=== PATIENT | female | born 1950 | race Caucasian/White ===

== ENCOUNTER 2017-08-20 13:55 | Emergency (ER) | payer MEDICARE, BC, SELFPAY ==
[2017-08-20 13:56] VITALS: BP 181/124; PULSE 73; RESP 16; TEMP 36.7; O2SAT 96; BMI 21.3
--- NOTE | 2017-08-20 14:35 | EKG12_ITS ---
Test Reason : HTN Blood Pressure : / mmHG Vent. Rate : 069 BPM Atrial Rate : 069 BPM P-R Int : 166 ms QRS Dur : 076 ms QT Int : 380 ms P-R-T Axes : 063 029 063 degrees QTc Int : 407 ms Sinus rhythm with occasional Premature ventricular complexes Otherwise normal ECG Confirmed by JESSICA ZHU ([id number]), senior editor ZONIA ROSARIO ([id number]) on 08/24/2017 1:07:43 PM Referred By: AUREA Confirmed By:JESSICA ZHU
--- NOTE | 2017-08-20 14:36 | RAD_ITS ---
STUDY: X-RAY CHEST REASON FOR EXAM: Female, 67 years old. Hypertension. Chest heaviness. TECHNIQUE: Single AP portable view of the chest. COMPARISON: None. FINDINGS: EKG electrodes are seen. Hyperinflation. The lungs are clear. There is no demonstrated pleural abnormality. Normal size heart. Normal mediastinum and rashaad. Normal visualized pulmonary arteries. Normal visualized aortic arch and descending thoracic aorta. Normal visualized thoracic spine. Normal visualized ribs, clavicles, and shoulders. There is no demonstrated abnormality of the visualized soft tissue structures of the upper abdomen. RAD/Chest 1 View (Portable) IMPRESSION: Hyperinflation. Electronically Signed: Miller Gonzales MD at 14:51 EST Tel [phone], Service support ,
--- NOTE | 2017-08-20 14:36 | ED.VISSUMM ---
- ER Visit Summary Date of Service: 08/20/17 Chief Complaint: Acute on chronic hypertension History of Present Illness: The patient is a 67 F history of hypertension for 30 years. Patient was recently switched to a new antihypertension medication. She states this is Irbesartan. Today her blood pressures been elevated. He has had headaches. Some intermittent chest discomfort. No shortness of breath. No nausea, vomiting or diarrhea. No fever. Physical Examination: Signs are stable her initial blood pressure is 181/124 when I am in the room is 184/84. Pulse ox 96% room air no signs of hypoxia. She does not look septic toxic. She is no acute distress. H EENT exam unremarkable. Neck nontender. Lungs clear to auscultation bilaterally. Heart regular rate and rhythm no murmur. Abdomen soft nontender. She is moving all 4 extremities. Neurovascular intact. Equal symmetrical radial pulses. 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 Dorsi plantar flexion intact. Neurologic exam normal. Skin exam normal. Test Results: Chest x-ray showed normal cardiac silhouette and mediastinum read by myself and the radiologist. EKG sinus rhythm a rate of 69 with occasional PVCs but no signs of NE or ischemia. Emergency Department Course and Treatment: Has acute on chronic hypertension currently is poorly controlled. She just started the new medication. Treatment Plan: Repeat exam patient is doing well. Currently her pressure is 174/90. I long discussion with her and her . She has had multiple reactions to medications. She is a list of over 40+ medications as she has had reactions to. Plan to her that I do not feel that many of these were true allergies. We will stop her current blood pressure medication Avapro and start her on lisinopril 20 mg once a day. She will be given a dose here prior to being discharged. She needs to log her blood pressures twice daily and follow-up with her primary care physician to see if they need to change or adjust her medication. Disposition: Discharge Impression: Acute on chronic hypertension This note was generated with [employer] dictation software. It may contain incorrect words, spelling, and punctuation that were not noted in review of the chart prior to signing ED Disposition - Plan for ED Patient: Chief Complaint: Hypertension Referrals: Jose Sierra MD [Primary Care Provider] -
--- NOTE | 2017-08-20 14:42 | ED.DCSUM_ITS ---
- ER Visit Summary Date of Service: 08/20/17 Chief Complaint: Acute on chronic hypertension History of Present Illness: The patient is a 67 F history of hypertension for 30 years. Patient was recently switched to a new antihypertension medication. She states this is Irbesartan. Today her blood pressures been elevated. He has had headaches. Some intermittent chest discomfort. No shortness of breath. No nausea, vomiting or diarrhea. No fever. Physical Examination: Signs are stable her initial blood pressure is 181/124 when I am in the room is 184/84. Pulse ox 96% room air no signs of hypoxia. She does not look septic toxic. She is no acute distress. H EENT exam unremarkable. Neck nontender. Lungs clear to auscultation bilaterally. Heart regular rate and rhythm no murmur. Abdomen soft nontender. She is moving all 4 extremities. Neurovascular intact. Equal symmetrical radial pulses. Bilateral 5 out of 5 fleet manager strength. Dorsi plantar flexion intact. Neurologic exam normal. Skin exam normal. Test Results: Chest x-ray showed normal cardiac silhouette and mediastinum read by myself and the radiologist. EKG sinus rhythm a rate of 69 with occasional PVCs but no signs of TN or ischemia. Emergency Department Course and Treatment: Has acute on chronic hypertension currently is poorly controlled. She just started the new medication. Treatment Plan: Repeat exam patient is doing well. Currently her pressure is 174/90. I long discussion with her and her . She has had multiple reactions to medications. She is a list of over 40+ medications as she has had reactions to. Plan to her that I do not feel that many of these were true allergies. We will stop her current blood pressure medication Avapro and start her on lisinopril 20 mg once a day. She will be given a dose here prior to being discharged. She needs to log her blood pressures twice daily and follow- up with her primary care physician to see if they need to change or adjust her medication. Disposition: Discharge Impression: Acute on chronic hypertension This note was generated with [employer] dictation software. It may contain incorrect words, spelling, and punctuation that were not noted in review of the chart prior to signing ED Disposition - Plan for ED Patient: Chief Complaint: Hypertension Referrals: Jose Sierra MD [Primary Care Provider] -
[2017-08-20 15:10] VITALS: BP 171/90; PULSE 69; RESP 17; O2SAT 98
--- NOTE | 2017-08-20 15:23 | ED.DEP ---
ED Disposition - Plan for ED Patient: Disposition: Home or Assisted Living Chief Complaint: Hypertension Instructions: ED Hypertension Conf Out Of Control Prescriptions: Lisinopril [Zestril] 20 mg PO DAILY #30 tab Referrals: Jose Sierra MD [Primary Care Provider] - Additional Instructions: Lisinopril 20 mg once a day. Log your blood pressures twice daily and follow-up your primary care physician to have your blood pressures reevaluated to see if the need to adjust your medication.
[2017-08-20] MEDS: Lisinopril 20 MG Tablet PO (15:42)
[2017-08-20 15:47] VITALS: BP 160/71; PULSE 77; RESP 21; O2SAT 97
--- NOTE | 2017-08-20 15:48 | ED.RN ---
THIS RN EDUCATED PT ON DISCHARGE INSTRUCTIONS AND HOME GOING PRESCRIPTIONS. PT AND VERBALIZE UNDERSTANDING. PT GIVEN LISINOPRIL DOSE PRIOR TO LEAVING ED. PT TO FOLLOW UP WITH DR. LOPEZ. PT LEAVES AMBULATORY WITH NO ASSISTANCE FROM STAFF.
== END 2017-08-20 15:50 | disposition home or self-care (01) ==
LOC: ED 15:42
PROVIDERS: Emergency Provider Emergency Medicine; Family Provider Family Medicine; PCP Family Medicine
DX: I10 Essential (primary) hypertension (principal); Z79.899 Other long term (current) drug therapy; Z87.891 Personal history of nicotine dependence
CPT/HCPCS: 71045; 93005; 99283

== ENCOUNTER → 2019-05-18 10:25 | Outpatient (CLI) | payer MEDICARE, BC, SELFPAY ==
[2019-05-18 09:43] VITALS: BMI 21.3
--- NOTE | 2019-05-18 10:30 | BI_ITS ---
MAMMOGRAPHY - BILATERAL SCREENING REASON FOR EXAM: Female, 69 years old. Routine annual screening examination. PERTINENT HISTORY: Mother with breast cancer. Bilateral breast implants. Remote left excisional breast biopsy. TECHNIQUE: Digital bilateral breast hollis (3D mammographic acquisition) in the CC and MLO projections. 2-D mediolateral oblique (MLO) and craniocaudad (CC) views of both breasts were obtained. CAD: Full Field Digital Mammography with Computer Added Detection was performed. COMPARISON: Comparison is made with prior outside examination dated May 09, 2018. FINDINGS: Breast Composition: The breasts are heterogeneously dense, which may obscure small masses. There are no dominant masses or suspicious calcifications. Stable appearance of the bilateral breast implants. No other significant abnormalities are identified. There has been no significant change since the prior study. BI/SCREEN MAMM (CAD) W/HOLLIS BILAT IMPRESSION: Stable bilateral screening mammogram. Yearly follow-up mammogram recommended. (A) ASSESSMENT CATEGORY: BIRADS Category 2: Benign. A letter regarding these results will be sent to the patient by the facility within 30 days. Approximately 10% of breast cancers are not detected by mammography. A normal mammogram should not delay biopsy of a clinically suspicious abnormality. [id number] Electronically Signed: Miller Gonzales, at 8:22 EST , Service support ,
[2019-05-22 22:30] LABS: HPV Reflexed? NOT INDICATED
== END ==
PROVIDERS: Family Provider Internal Medicine; PCP Internal Medicine; Referring Provider Obstetrics & Gynecology; Visit Provider Obstetrics & Gynecology
DX: Z12.31 Encounter for screening mammogram for malignant neoplasm of breast (principal); R87.619 Unspecified abnormal cytological findings in specimens from cervix uteri
CPT/HCPCS: 77063; 77067; 88175; G0145

== ENCOUNTER → 2020-05-27 10:03 | Outpatient (CLI) | payer MEDICARE, BC, SELFPAY ==
[2019-05-18 09:43] VITALS: BMI 21.3
--- NOTE | 2020-05-27 10:07 | BI_ITS ---
MAMMOGRAPHY - BILATERAL SCREENING REASON FOR EXAM: Female, 70 years old. Routine annual screening examination. PERTINENT HISTORY: Mother with breast cancer. Bilateral breast implants. Remote left excisional breast biopsy. TECHNIQUE: Digital bilateral breast hollis (3D mammographic acquisition) in the CC and MLO projections. 2-D mediolateral oblique (MLO) and craniocaudad (CC) views of both breasts were obtained. CAD: Full Field Digital Mammography with Computer Added Detection was performed. COMPARISON: Comparison is made with prior study dated 05/18/2019. FINDINGS: Breast Composition: The breasts are heterogeneously dense, which may obscure small masses. There are no dominant masses or suspicious calcifications. There is a 7.5 mm x 7.2 mm well-defined nodule in the slightly upper lateral aspect of the left breast. Correlation with ultrasound is recommended. Stable appearance of the bilateral breast implants. No other significant abnormalities are identified. BI/SCREEN MAMM (CAD) W/HOLLIS BILAT IMPRESSION: 7.5 mm x 7.2 mm well-defined nodule in the slightly upper lateral aspect of the left breast as described. Correlation with ultrasound is recommended. ASSESSMENT CATEGORY: BIRADS Category 0: Incomplete. Need additional imaging evaluation. A letter regarding these results will be sent to the patient by the facility within 30 days. Approximately 10% of breast cancers are not detected by mammography. A normal mammogram should not delay biopsy of a clinically suspicious abnormality. [id number] Electronically Signed: Miller Gonzales, at 11:21 EST , Service support ,
== END ==
PROVIDERS: PCP Internal Medicine; Referring Provider Nurse Practitioner Women's Health; Visit Provider Nurse Practitioner Women's Health
DX: N89.8 Other specified noninflammatory disorders of vagina (principal); Z12.31 Encounter for screening mammogram for malignant neoplasm of breast
CPT/HCPCS: 77063; 77067; 87070; 87205

== ENCOUNTER → 2020-05-30 09:50 | Outpatient (CLI) | payer MEDICARE, BC, SELFPAY ==
[2020-05-27 10:48] VITALS: BMI 19.5
--- NOTE | 2020-05-30 09:52 | US_ITS ---
STUDY: ULTRASOUND BREAST - LEFT REASON FOR EXAM: Female, 70 years old. Abnormal screening mammogram. TECHNIQUE: Axial and longitudinal images of the LEFT breast were performed with a high resolution ultrasound transducer. # OF IMAGES: 36 COMPARISON: Comparison is made with prior mammogram dated 05/27/2020. FINDINGS: LEFT Breast: The mammographic abnormality corresponds to a 7 mm x 7 mm x 6 mm hypoechoic solid nodule at the 2 o''clock position of the breast at 4 cm from the nipple. Adjacent to this, there is a 4 mm x 3 mm x 4 mm cyst. There is also evidence of a 5 mm x 4 mm x 1 mm cyst at the 2 o''clock position the breast at 2 cm from the nipple. The breast implant is unremarkable. US/Breast Limited Unilateral IMPRESSION: The mammographic and relative corresponds to a 7 mm x 7 mm x 6 mm well-defined hypoechoic solid nodule at the 2 o''clock position of the breast at 4 cm from nipple. Biopsy recommended. 2 small cysts are also seen in the lateral portion of the breast ASSESSMENT CATEGORY: BIRADS Category 2: Benign. A letter regarding these results will be sent to the patient by the facility within 30 days. Electronically Signed: Miller Gonzales, at 12:32 EST , Service support ,
--- NOTE | 2020-05-30 09:52 | US_ITS ---
STUDY: ULTRASOUND OF THE FEMALE PELVIS - COMPLETE REASON FOR EXAM: Female, 70 years old. ADNEXAL MASS LMP: The patient is postmenopausal. TECHNIQUE: Transabdominal and Transvaginal TECHNICAL QUALITY: Adequate. COMPARISON: None. FINDINGS: The patient is status post hysterectomy. The right ovary is visualized. The right ovary measures 2.2 cm x 0.8 cm x 1.3 cm. There is no right ovarian cyst or ovarian mass. There is no visualized right adnexal mass or complex lesion. There is normal arterial and normal venous vascularity. The left ovary is visualized. The left ovary measures 2.6 cm x 1.5 cm x 2 cm. There is a 1.1 cm x 1.1 cm x 1.2 cm cyst in the left ovary. There is no visualized left adnexal mass or complex lesion. There is normal arterial and normal venous vascularity. There is no fluid in the cul-de-sac. US/Transvaginal Non- IMPRESSION: Status post hysterectomy. 1.1 cm x 1.1 cm x 1.2 cm cyst in the left ovary. Electronically Signed: Miller Gonzales, at 12:42 EST , Service support ,
== END ==
PROVIDERS: PCP Internal Medicine; Referring Provider Obstetrics & Gynecology; Visit Provider Obstetrics & Gynecology
DX: R92.8 Other abnormal and inconclusive findings on diagnostic imaging of breast (principal); N63.20 Unspecified lump in the left breast, unspecified quadrant; N83.202 Unspecified ovarian cyst, left side
CPT/HCPCS: 76642; 76830

== ENCOUNTER → 2020-06-04 | Outpatient (CLI) | payer MEDICARE, BC, SELFPAY ==
[2020-06-04 15:22] VITALS: BMI 19.5
--- NOTE | 2020-06-04 16:00 | BRBX_PTH ---
PATIENT: MAXI RUBIO LOC: [facility] U#:[id number] AGE/SX: 70/F ROOM: RE06/04/[address]: Dr. Junito Sepulveda MD : [id number] BED: DIS: 06/04/2020 SPEC #: [id number] RECD: 06/04/20 17:33 STATUS: ELIA RETucker #: [id number] CLYDE: 06/04/20 16:[address]: Junito Sepulveda DEPT: SURGICAL PATHOLOGY RECD BY: Arcelia Crawford ENTERED: 06/05/20 08:47 SP TYPE: BREAST BX OT DR: Dr. Sanjeev Singh MD Tissues: Breast, NOS Procedures: Surgery Specimen Level IV HEADER OPERATION: Left breast biopsy PRE-OP DIAGNOSIS: Abnormal left breast ultrasound TISSUE SUBMITTED: Left breast tissue MICROSCOPIC DIAGNOSIS Left breast, core biopsy: Benign breast parenchyma. See comment. AM:kasi 12/10/20 COMMENT Sections show a portion of ectatic duct with associated mild chronic inflammation. The ductal epithelium focally displays benign hyperplastic change. There is no evidence of malignancy. Clinical correlation is suggested. Case has been reviewed in consultation with Dr. Cedeno who concurs with the above diagnosis. IDC:SJ MICROSCOPIC DESCRIPTION Slides are reviewed. GROSS DESCRIPTION Received in fixative is one container labeled with the patient's name and designated left breast. The specimen consists of multiple elongated fragments of light bertrand soft tissue that in aggregate measure 1 x 0.2 x 0.1 cm. The specimen is totally submitted in one cassette. / AM:kasi 06/05/20 TC:5 CPT: 79767
== END | disposition home or self-care (01) ==
LOC: LABSPEC 06-05 08:23
PROVIDERS: PCP Internal Medicine; Referring Provider Surgery; Visit Provider Surgery
DX: R92.8 Other abnormal and inconclusive findings on diagnostic imaging of breast (principal)
CPT/HCPCS: 88305

== ENCOUNTER → 2020-06-06 10:47 | Outpatient (CLI) | payer MEDICARE, BC, SELFPAY ==
[2020-06-04 15:22] VITALS: BMI 19.5
--- NOTE | 2020-06-06 10:48 | BI_ITS ---
MAMMOGRAPHY - UNILATERAL DIAGNOSTIC: LEFT BREAST REASON FOR EXAM: Female, 70 years old. Left breast biopsy. Clip placement. PERTINENT HISTORY: Mother with breast cancer. TECHNIQUE: Digital unilateral breast alexey (3D mammographic acquisition) in the CC and MLO projections. 2-D mediolateral oblique (MLO) and craniocaudad (CC) views of both breasts were obtained. CAD: Full Field Digital Mammography with Computer Added Detection was performed. COMPARISON: Comparison is made with prior study dated 05/27/2020. FINDINGS: Breast Composition: The breasts are heterogeneously dense, which may obscure small masses. There are no dominant masses or suspicious calcifications. A tissue clip marker is seen in the slightly upper lateral aspect of the left breast. No other significant abnormalities are identified. BI/DIAG MAMM W/CAD, UNILAT IMPRESSION: Tissue clip marker is seen in the slightly upper lateral aspect of the left breast. ASSESSMENT CATEGORY: BIRADS Category 2: Benign. A letter regarding these results will be sent to the patient by the facility within 30 days. Approximately 10% of breast cancers are not detected by mammography. A normal mammogram should not delay biopsy of a clinically suspicious abnormality. Electronically Signed: Miller Gonzales, at 12:23 EST , Service support ,
== END ==
PROVIDERS: PCP Internal Medicine; Referring Provider Surgery; Visit Provider Surgery
DX: N63.21 Unspecified lump in the left breast, upper outer quadrant (principal); Z98.890 Other specified postprocedural states
CPT/HCPCS: 77065

== ENCOUNTER → 2020-07-16 08:47 | Outpatient (CLI) | payer MEDICARE, BC, SELFPAY ==
[2020-06-04 15:22] VITALS: BMI 19.5
--- NOTE | 2020-07-16 08:49 | BI_ITS ---
MAMMOGRAPHY - UNILATERAL DIAGNOSTIC: LEFT BREAST REASON FOR EXAM: Female, 70 years old. Left breast pain at the biopsy site. PERTINENT HISTORY: Mother with breast cancer. Prior bilateral breast implants. TECHNIQUE: Digital unilateral breast alexey (3D mammographic acquisition) in the CC and MLO projections. 2-D mediolateral oblique (MLO) and craniocaudad (CC) views of both breasts were obtained. CAD: Full Field Digital Mammography with Computer Added Detection was performed. COMPARISON: Comparison is made with prior study dated 06/06/2020 and 05/27/2020. FINDINGS: Breast Composition: The breasts are heterogeneously dense, which may obscure small masses. There are no dominant masses or suspicious calcifications. A tissue clip marker is seen and the site of the upper outer aspect of the left breast. Stable appearance of the bilateral breast implants. No other significant abnormalities are identified. BI/DIAG MAMM W/CAD, UNILAT IMPRESSION: Stable unilateral diagnostic mammogram. One year follow-up mammogram recommended. (A) ASSESSMENT CATEGORY: BIRADS Category 2: Benign. A letter regarding these results will be sent to the patient by the facility within 30 days. Approximately 10% of breast cancers are not detected by mammography. A normal mammogram should not delay biopsy of a clinically suspicious abnormality. Electronically Signed: Miller Gonzales MD at 10:54 EST , Service support ,
--- NOTE | 2020-07-16 08:49 | US_ITS ---
STUDY: ULTRASOUND BREAST - LEFT REASON FOR EXAM: Female, 70 years old. Pain in the left breast. Pain at biopsy site. TECHNIQUE: Axial and longitudinal images of the LEFT breast were performed with a high resolution ultrasound transducer. # OF IMAGES: 14 COMPARISON: Comparison is made with prior sonogram dated 05/30/2020. FINDINGS: LEFT Breast: The patient is status post biopsy. Stable 4 mm x 3 mm x 4 mm cyst at the 2 o''clock position of the breast are 2 cm from nipple. Stable 5 mm x 6 mm x 4 mm solid nodule at the 3 o''clock position of the breast of 4 cm from nipple. US/Breast Limited Unilateral IMPRESSION: Stable examination. ASSESSMENT CATEGORY: BIRADS Category 2: Benign. A letter regarding these results will be sent to the patient by the facility within 30 days. Electronically Signed: Miller Gonzales MD at 15:42 EST , Service support ,
== END ==
PROVIDERS: PCP Internal Medicine; Visit Provider Physician Assistant
DX: N64.4 Mastodynia (principal)
CPT/HCPCS: 76642; 77061; 77065; G0279

== ENCOUNTER → 2020-07-17 12:48 | Outpatient (CLI) | payer MEDICARE, BC, SELFPAY ==
[2020-05-27 10:48] VITALS: BMI 19.5
[2020-06-04 15:22] VITALS: BMI 19.5
--- NOTE | 2020-07-17 12:53 | US_ITS ---
STUDY: ULTRASOUND OF THE FEMALE PELVIS - COMPLETE REASON FOR EXAM: Female, 70 years old. F/U LTO CYST. HX OF HYSTERECTOMY IN 1979 LMP: Status post hysterectomy. TECHNIQUE: Transabdominal and Transvaginal TECHNICAL QUALITY: Adequate. COMPARISON: Comparison is made with prior examination dated 05/30/2020. FINDINGS: The patient is status post hysterectomy. The right ovary is non-visualized. The left ovary is visualized. The left ovary measures 2.2 cm x 1.2 cm x 1.9 cm. There is a 1.3 cm x 1 cm x 1.2 cm cyst in the left ovary. This is essentially unchanged. There is no visualized left adnexal mass or complex lesion. There is normal arterial and normal venous vascularity. There is no fluid in the cul-de-sac. The pre void volume of the bladder was 44 ml. US/Pelvic (Non ) IMPRESSION: Stable 1.3 cm x 1 cm x 1.2 cm cyst in the left ovary. Electronically Signed: Miller Gonzales MD at 15:46 EST , Service support ,
--- NOTE | 2020-07-17 12:53 | US_ITS ---
STUDY: ULTRASOUND OF THE FEMALE PELVIS - COMPLETE REASON FOR EXAM: Female, 70 years old. F/U LTO CYST. HX OF HYSTERECTOMY IN 1979 LMP: Status post hysterectomy. TECHNIQUE: Transabdominal and Transvaginal TECHNICAL QUALITY: Adequate. COMPARISON: Comparison is made with prior examination dated 05/30/2020. FINDINGS: The patient is status post hysterectomy. The right ovary is non-visualized. The left ovary is visualized. The left ovary measures 2.2 cm x 1.2 cm x 1.9 cm. There is a 1.3 cm x 1 cm x 1.2 cm cyst in the left ovary. This is essentially unchanged. There is no visualized left adnexal mass or complex lesion. There is normal arterial and normal venous vascularity. There is no fluid in the cul-de-sac. The pre void volume of the bladder was 44 ml. US/Transvaginal Non- IMPRESSION: Stable 1.3 cm x 1 cm x 1.2 cm cyst in the left ovary. Electronically Signed: Miller Gonzales MD at 15:46 EST , Service support ,
== END ==
PROVIDERS: PCP Internal Medicine; Referring Provider Obstetrics & Gynecology; Visit Provider Obstetrics & Gynecology
DX: N83.209 Unspecified ovarian cyst, unspecified side (principal)
CPT/HCPCS: 76830; 76856

== ENCOUNTER → 2021-05-29 11:59 | Outpatient (CLI) | payer MEDICARE, BC, SELFPAY ==
[2020-06-04 15:22] VITALS: BMI 19.5
--- NOTE | 2021-05-29 12:02 | BI_ITS ---
MAMMOGRAPHY - BILATERAL SCREENING REASON FOR EXAM: Female, 71 years old. Routine annual screening examination. PERTINENT HISTORY: Mother with breast cancer. Bilateral breast implants. Recent left ultrasound-guided breast biopsy. TECHNIQUE: Digital bilateral breast hollis (3D mammographic acquisition) in the CC and MLO projections. 2-D mediolateral oblique (MLO) and craniocaudad (CC) views of both breasts were obtained. CAD: Full Field Digital Mammography with Computer Added Detection was performed. COMPARISON: Comparison is made with prior study dated 05/27/2020 and 06/06/2021. FINDINGS: Breast Composition: The breasts are heterogeneously dense, which may obscure small masses. There are no dominant masses or suspicious calcifications. A tissue clip marker is now seen in a tiny nodular density in the upper outer aspect of the left breast. This is in keeping with recent ultrasound-guided breast biopsy. Stable appearance of the bilateral breast implants. No other significant abnormalities are identified. BI/SCRN MAMM (CAD)W/HOLLIS BILAT IMPRESSION: Status post ultrasound-guided biopsy of the tiny nodular density in the upper lateral aspect of the left breast. The remainder of the examination is unchanged. Yearly follow-up mammogram recommended. (A) ASSESSMENT CATEGORY: BIRADS Category 2: Benign. A letter regarding these results will be sent to the patient by the facility within 30 days. Approximately 10% of breast cancers are not detected by mammography. A normal mammogram should not delay biopsy of a clinically suspicious abnormality. [id number] Electronically Signed: Miller Gonzales MD at 13:02 EST , Service support ,
== END ==
PROVIDERS: PCP Internal Medicine; Referring Provider Obstetrics & Gynecology; Visit Provider Nurse Practitioner Women's Health
DX: N89.8 Other specified noninflammatory disorders of vagina (principal); Z12.31 Encounter for screening mammogram for malignant neoplasm of breast
CPT/HCPCS: 77063; 77067; 87070; 87205

== ENCOUNTER → 2022-06-05 | Outpatient (CLI) | payer MEDICARE, BC, SELFPAY ==
--- NOTE | 2022-06-05 09:54 | BI_ITS ---
MAMMOGRAPHY - BILATERAL SCREENING REASON FOR EXAM: Female, 72 years old. Routine annual screening examination. PERTINENT HISTORY: Mother with breast cancer. Prior left ultrasound-guided breast biopsy. Bilateral breast implants. TECHNIQUE: Digital bilateral breast hollis (3D mammographic acquisition) in the CC and MLO projections. 2-D mediolateral oblique (MLO) and craniocaudad (CC) views of both breasts were obtained. CAD: Full Field Digital Mammography with Computer Added Detection was performed. COMPARISON: Comparison is made with prior examination dated 05/29/2021 and 07/16/2020. FINDINGS: Breast Composition: The breasts are heterogeneously dense, which may obscure small masses. There are no dominant masses or suspicious calcifications. Once again, there is evidence of bilateral breast implants. A tissue clip marker is once again seen in the upper outer aspect of the left breast. No other significant abnormalities are identified. There has been no significant change since the prior study. BI/SCRN MAMM (CAD)W/HOLLIS BILAT IMPRESSION: Stable bilateral screening mammogram. Yearly follow-up mammogram recommended. (A) ASSESSMENT CATEGORY: BIRADS Category 2: Benign. A letter regarding these results will be sent to the patient by the facility within 30 days. Approximately 10% of breast cancers are not detected by mammography. A normal mammogram should not delay biopsy of a clinically suspicious abnormality. [id number] Electronically Signed: Miller Gonzales MD at 11:07 EST ,
== END | disposition home or self-care (01) ==
PROVIDERS: PCP Internal Medicine; Referring Provider Nurse Practitioner Women's Health; Visit Provider Obstetrics & Gynecology
DX: Z12.31 Encounter for screening mammogram for malignant neoplasm of breast (principal); Z80.3 Family history of malignant neoplasm of breast; Z98.82 Breast implant status; N89.8 Other specified noninflammatory disorders of vagina
CPT/HCPCS: 77063; 77067; 87070; 87205

== ENCOUNTER → 2023-05-19 | Outpatient (CLI) | payer MEDICARE, BC, SELFPAY ==
--- NOTE | 2023-05-19 10:26 | CR.HP_ITS ---
CR - History & Physical General Arrival date:: 05/19/23 Arrival time:: 10:26 Date of Referral:: 05/07/23 Date of CR Evaluation:: 05/19/23 Referring Physician: Dr. Norman Barker Primary Diagnosis: PCI with coronary stent History of Present Cardiac Event Onset Date PTCA or coronary stenting:: Yes Vessel: LAD Medications Ambulatory Orders Medication Instructions Recorded nifedipine 30 mg tablet,extended 30 mg PO DAILY 05/18/19 release pravastatin 40 mg tablet 40 mg PO DAILY 05/18/19 valsartan 160 mg tablet 160 mg PO DAILY 05/18/19 calcium citrate 315 mg 1 tab PO DAILY 05/27/20 calcium-vitamin D3 6.25 mcg (250 unit) tablet (Citracal + Vitamin D Maximum) metoprolol tartrate 25 mg tablet 25 mg PO DAILY 05/27/20 multivitamin,rv-fhoi-otamccbo 1 tab PO DAILY 05/27/20 (Complete Multivitamin tablet) ezetimibe 10 mg tablet (Zetia) 10 mg PO DAILY 05/29/21 hydroxychloroquine 100 mg tablet 100 mg PO BID 06/05/22 estradiol 10 mcg vaginal tablet 10 mcg vaginal DAILY #22 tabs 10/23/22 (Yuvafem) nitrofurantoin 100 mg PO Q12H #14 caps 10/23/22 monohydrate/macrocrystals 100 mg capsule (Macrobid) Allergies Allergies ampicillin Allergy (Mild, Verified 10/23/22 11:11) unknown cephalexin Allergy (Mild, Verified 10/23/22 11:11) unknown clarithromycin Allergy (Mild, Verified 10/23/22 11:11) unknown clindamycin Allergy (Mild, Verified 10/23/22 11:11) unknown codeine Allergy (Mild, Verified 10/23/22 11:11) Unknown erythromycin base Allergy (Mild, Verified 10/23/22 11:11) unknown ibuprofen Allergy (Mild, Verified 10/23/22 11:11) unknown meperidine Allergy (Mild, Verified 10/23/22 11:11) unknown naproxen Allergy (Mild, Verified 10/23/22 11:11) unknown Penicillins Allergy (Mild, Verified 10/23/22 11:11) unknown sulfamethoxazole Allergy (Mild, Verified 10/23/22 11:11) unknown sulfanilamide Allergy (Mild, Verified 10/23/22 11:11) PT UNSURE OF REACTION tetracycline Allergy (Mild, Verified 10/23/22 11:11) unknown trimethoprim Allergy (Mild, Verified 10/23/22 11:11) unknown Sleep Disorder Evaluation Hx of Sleep Apnea: No Do you snore loudly (louder than talking or can be heard through closed doors)?: No Do you often feel tired/ fatigued/ sleepy during daytime?: No Has anyone observed you stop breathing during sleep?: No History of Hypertension (for STOP score): Yes STOP Results: Negative Advanced Directives Advanced Directives Power of Outside Sales Account Executive: Yes Living Will: Yes Advance Directives Information Provided: No Advance Directives on File: No DNR Order?:: No Past Medical History Covid-19 Screening Physicial Symptoms Other Clinical Concerns Exposure Risk Pertinent Comorbidities Has a serious heart condition:: Yes Past Medical Illness Medical History Abnormal Pap smear of cervix Arthritis Basal cell carcinoma Connective tissue disease, undifferentiated Differentiation syndrome Fibroids High cholesterol HTN (hypertension) 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 Mass of left breast Mitral valve prolapse Osteoporosis Rosacea Past Surgical History Surgical History Breast implant status Hx of appendectomy S/P dilation and curettage S/P foot surgery, left S/P hysterectomy S/P tonsillectomy and adenoidectomy Family History Summary Family History Father Alcoholism Throat cancer Mother Thyroid disorder Breast cancer Other Abnormal Pap smear of cervix Social History Alcohol Use Alcohol Usage: Yes (1-2 drinks a year) Occupation Occupation (List type of work in comments):: Retired Hobbies, Recreation, Social Activities Hobbies: Other (gardeninig) Recreational Activities: I am able to engage in all my recreational activities Social Environment Status Marital Status: Current Living Arrangements Living Environment:: Spouse Children How many children do you have?: 4 Do any of your children live nearby?: Yes Safety Do you feel safe in your surroundings?: Yes Assistance Do you need any assistance at home?: no Review of Systems Review of Systems Hints Review of Present Symptoms: Reports Shortness of Breath with Exertion, Operative Discomfort (wrist pain from cath), Angina, Fatigue, Heart Arrhythmia /Irregularities and Appetite - Special Diet; Denies Shortness of Breath at Rest, PVD, Wound Healing, Dizziness/Lightheadedness, Appetite - Normal, Sleep - Normal or Sexual Changes Pain Is Patient Pain Free?: No Pain Location: other (entire body pain due to connective tissue disease and arthritis) Pain Level: 04/06 Risk Factor Assessment Vital Signs Pulse Ox: 100 Blood Pressure: 132/74 Pulse Pulse Rate: 62 Hypertension How long have you been treated?: 40 years Blood Pressure Sitting - Right Arm: 132/74 Stress Stress: Long-standing (illness, husbands health) Obesity Height: 5 ft 6.5 in Weight:: 117 lb Weight in Pounds: 117.0 lbs Body Mass Index (BMI): 18.6 Nutritional Referral for Obesity: No Physical Inactivity Physical Inactivity: None (pt has a torn labrum L hip) Risk Stratification Risk Guidelines: Lowest Risk: Risk Factor for Smoking, Risk Factor for Diabetes and Risk Factor for Obesity, Moderate Risk: Risk Factor for Sedentary Lifestyle and Risk Factor for Depression and Highest Risk: Risk Factor for Dyslipidemia and Risk Factor for Hypertension For Smoking Smoking Risk Guidelines For Dyslipidemia Dyslipidemia Risk Guidelines For Diabetes Mellitus Diabetes Risk Guidelines For Obesity/Overweight Obesity/Overweight Risk Guidelines For Hypertension Hypertension Risk Guidelines For Sedentary Lifestyle Sedentary Lifestyle Risk Guidelines For Depression Depression Risk Guidelines Family History Family History Father Alcoholism Throat cancer Mother Thyroid disorder Breast cancer Other Abnormal Pap smear of cervix Motivation Motivation to Participate On a scale of 1 to 10, how prepared are you to commit to attending program?: 10 What do you see as barriers to successfully being able to complete the program?: no What do you see as the benefits of succesfully completing the program? In other words, what do you hope to get out of participating in the program?: improved health, decreased SOB Are there issues you are dealing with that will interfere with completing the program?: no Do you have a spouse or signficant other, family or friends who will help support you to complete the program?: yes
[2023-05-19 10:34] VITALS: BP 132/74; PULSE 62; O2SAT 100
--- NOTE | 2023-05-19 10:34 | CR.ITP_ITS ---
Diagnosis General Information
--- NOTE | 2023-05-19 10:34 | PCM.CR.ITP ---
Diagnosis General Information Admitting Diagnosis: PCI with coronary stent Personal Learning Style:: Audio/Visual Stage of change r/t lifestyle modifications:: Contemplation Gave educational material for:: Treating Heart Disease, How The Heart Works, What it means to have Heart Disease, How Coronary Artery Disease is Diagnosed, Heart Procedures, What Heart Medications Do, Risk Factors & Modifications, Living an Active Life, Nutrition, Emotions & Heart Disease, Stress Management & Relaxation and Sleep Disorders & Heart Disease Education/Goals Cardiac Rehabilitation Goals Personal Goals: Initial Assessment: Improve management of stress and emotions, Improve energy level, Participate in home exercise program, Get back to work, or to resume activities faster, Improve muscle strength and endurance and Control risk factors (learn risk factor modification) Scale for measuring improvement of personal goals Diagnosis & Disease Process Outcomes/Goals: Pt IDs own risk factors & lifestyle modifications by Session 10, Verbalizes symptoms of angina & response by session 3., Pt independently manages and Other Additional Outcomes/Goals: Plan/Interventions: Assist Pt to ID & engage in lifestyle modification to reduce CVD risk, Instruct on individual risk factors, Review symptoms of angina & emergency actions, Review secondary diagnosis & identify educational needs. and Other see comment 30 day Reassessments:: Not Met 30 day Reassessments:: Not Met 30 day Reassessments:: Not Met 30 day Reassessments:: Not Met Final Reassessments:: Not Met Safety Referral to Physical Therapy: No Referral to [facility] Case Management: No Fall Risk Assessed:: Yes Exercise - Initial Assessment Visit Date of Eval: 05/19/23 (initial eval ) Mets: Pre-: >3 METS for 30 minutes by discharge, >5 METS for 30 minutes by discharge, >7 METS for 30 minutes by discharge and Unable to meet goal due to: (see comment below) Physician Prescribed Exercise Modalities: Treadmill, Rower, Airdyne, NuStep, SciFit and Lateral [place] Frequency: 3x/week for 12 weeks [36 sessions] Intensity: 60-80% of age predicted maximum heart rate reserve Duration: 30 - 45 minutes Current METSs:: 3 Target Heart Rate:: 88-110 Resting Blood Pressure: 132/74 EKG Type: SB with ST and anterolateral T wave abnormality Outcomes & Goals Goals:: Verbalizes understanding of THR, RPE & goal METS by session 6, Documents in home exercise log/reports 30 min aerobic 5 day/wk by DC, Demonstrates accurate pulse taking by DC and Other additional outcome/goals: see below Intervention & Plan Exercise Program Goals: Instruct on personal THR & RPE, Instruct on MET level & personal MET goal, Show patient to take own pulse /validate performance until accurate, Instruct on home exercise and Other additional plan/int Physical Activity Home Exercise Physical Activity - Home Exercise: Safe Exercise, Warm-up, Self-monitoring, Cool-Down, Home Exercise > 30 min Daily and Sitting Time <3 hours/daily Outcomes & Goals Outcomes/Goals: Demonstrates correct Warm-up/exercise Cool-Down (S3) if = 2.5 METs, Verbalizes symptoms of exercise intolerance by Session 3 (S3), Demonstrate safe equipment use (S3) & follows exercise prescrition (6) and Other: See below Intervention & Plan Plan/Intervention: Instruct warm-up & cool-down if exercising at > 2 METs, Instruct on symptoms of exercise intolerance & actions to take, Instruct & monitor on saf, Assess intial functional capacity & safety risk and Other See below Nutrition - Initial Assessment Program Goals Nutrition Program Goals Patient has diagnosis of Hyperlipidemia (ICD E78)?: Yes Visit Date of Eval: 05/19/23 (initial eval ) Cholesterol/Lipids (Other Core Measures) Determine presence & major risk factors that modify LDL goal: Cigarette smoking, Hypertension or hypertensive medication, Low HDL cholesterol <40 mg/dL*, Family history of premature CHD in Male < 55 years: female <65 yearsFa and Age men > 45 years; women >/= 55 years Outcomes/Goals: Pt IDs own risk factors & lifestyle modifications by Session 10, Verbalizes symptoms of angina & response by session 3., Pt independently manages and Other Additional Outcomes/Goals: Intervention/Plan: Advocate for lipid panel cholesterol medication if applicable, Instruct on personal lipid levels & lipid goals/NCEP guidelines, Instruct on cholesterol and Other additional plan/int Diabetes (Other Core Measures) Diabetes Type: Not Applicable Weight Mgt (Other Care) Height: 5 ft 8 in Weight:: 117 lb BMI: 17.8 Diagnosis Overweight/Obesity BMI> 30% ICD-10 E66: No Diagnosis High BMI/Morbid Obesity BMI> 35% ICD-10 Z68: No Outcomes/Goals: Pt sets, maintains & shows weight loss goal & trend during rehab and Other additional outcomes/goals Healthy Eating Habits Will attend diet classes:: Yes Outcomes/Goals:: Consume diet rich in vegs,fruits,whole grain/high fiber,fish,lean meat, Limit sat/trans fats,cholesterol & added salts & sugars and Other additional outcome/goals: Intervention/Plan:: Assess current eating habits and Other Additional plan/interventions Education Gave educational materials for:: Signs & symptoms of hypoglycemia, Signs & symptoms of hyperglycemia, Relate diabetes to coronary artery disease and Healthy eating Core - Initial Assessment Visit Date of Eval: 05/19/23 (initial eval ) Medication Compliance Preventative Medication(s):: Aspirin, Statin/lipid and Beta hector H/O mental health issues: depression, anxiety, or addiction?: No Doesn?t believe in the benefits of treatment?: No Believes medications are unnecessary or harmful?: No Has a concern about medication side effects?: No Expresses concern over the cost of medications?: No Outcomes/Goals: Verbalizes medications,desired effect & common side effects @ DC, Pt self-reports following medication regimen, Keeps card in wallet w/medications listed by DC and Other additional outcome/goals: Interventions/plans: Instruct on medication effects & side effects, Review medication list w/patient every two weeks, Instruct importance of taking meds as ordered & assist problem solving and Other additional Tobacco Use Tobacco Use: Non-smoker Hypertension Hypertension Diagnosis:: Hypertension ICD-10 I10 Resting Blood Pressure:: 132/74 [place] [employer] Hypertension Guidelines Outcomes/Goals: Able to verbalize/achieve optimal blood pressure <130/80, Incorporates diet changes & exercise for blood pressure control by DC and Other additional outcomes/goals Interventions/plan: Instruct on optimal blood pressure, hypertension & medications, Instruct on effects of sodium, alcohol, stress, exercise &hypertension and Other additional plan/interventions Tobacco Cessation Referral Smoking Cessation Referral:: No Individual Education/Counseling:: No Education Schedule Given:: Yes Psychosocial - Initial Assess VIsit Date of Eval: 05/19/23 (initial eval) History of previous Mental disease:: No Target Goals Target Goals Outcomes/Goals: See list Psychosocial Outcomes/Goals:: ID's personal stressors & 2 strategies to manage stress by discharge and Other Additional outcome/goals: Intervention/Plan: See List Interventions/Plan:: Assess stressors,coping strategies & signs of derpression on admission, Instruct/assist pt to develop coping & personal stress Mgt strategies, Refer to Behavioral Health if appropriate, Refer to Physician if appropriate, Instruct patient to recognize signs & symptoms of depression, Instruct patient to recog and Other additional plan/intervention Patient Health Questionnaire PHQ-9 Screening Initial Assessment: 1. Little interest or pleasure in doing things: Not at all 2. Feeling down, depressed, or hopeless: Not at all 3. Trouble falling or staying asleep, or sleeping too much: More than half the days 4. Feeling tired or having little energy: Nearly every day 5. Poor appetite or overeating: Not at all 6. Feeling bad about yourself -- or that you are a failure or have let yourself or your family down: Not at all 7. Trouble concentrating on things, such as reading the newspaper or watching television: Not at all 8. Moving or speaking so slowly that other people could have noticed. Or the opposite - being so fidgety or restless that you have been moving around a lot more than usual: Not at all 9. Thoughts that you would be better off , or of hurting yourself in some way: Not at all How difficult have these problems made it for you to do your work, take care of things at home, or get along with other people?: Somewhat difficult Total Score: 5 GUILHERME-Q SV Test Statements CAD is a disease of the arteries in the heart: False Examples of risk factors for heart disease: True Angina is chest pain or discomfort: True The benefits of resistance training include: True Eating more meat and dairy products: False Anti-platelet medications such as aspirin are important: True The only effective way to manage stress: False An exercise warm-up slowly increases heart rate: True Prepared, processed foods usually have high sodium: True Depression is common after a heart attack: True The statin medications lower cholesterol: True To control blood pressure, lower the amount of sodium: True If someone gets chest discomfort during walking: False Transfats are partially hydrogenated vegetable oils: True Sleep apnea that is not treated increases the risk: I Don't Know To control cholesterol, one should become a vegetarian: False Someone knows if he/she is exercising at the right level: True Diabetes cannot be prevented with exercise & health eating: False Stress is a large risk for heart attack: True A diet that can help lower blood pressure is rich in: True Total Score Total Correct Responses: 19 Self-Efficacy 6-Item Scale Initial Assessment: We would like to know how confident you are in doing certain activities. Please select your confidence level for: Fatigue Select Number: 1 Physical Discomfort or Pain Select Number: 1 Emotional Distress Select Number: 3 Other Symptoms or Health Problems Select Number: 3 Different Tasks and Activities Select Number: 4 Medication Select Number: 6 Total Score:: 3 Nutrition Survey Nutrition Survey Instructions Scoring Instructions Nutrition Survey Initial: Have you lost >10 lbs over the past 2 months without trying?: No Are you following a special diet at home for diabetes, low fat, or low salt?: No Are you interested in meeting with a dietitian for help understanding your diet?: Yes Do you eat less than 3 meals a day?: Yes Do you eat fatty meats (li, sausage, ribs, etc), fried foods, desserts, large amounts of salad dressings, margarine, butter, or cheese most days?: No Do you have food allergies? [Enter types in comment field]: Yes Do you eat in restaurants more than 3 times a week?: No Do you used canned, boxed, frozen meals, or soups, seasoning packets?: No Exercise - Final/Discharge Physician Prescribed Exercise Modalities: Treadmill, Rower, Airdyne, NuStep, SciFit and Lateral Stump Shooter Frequency: 3x/week for 12 weeks [36 sessions] Intensity: 60-80% of age predicted maximum heart rate reserve Current METSs:: 3 Target Heart Rate:: 88-110 Nutrition - 30-Day Assessment Weight Mgt (Other Care) Height: 5 ft 8 in Weight:: 117 lb BMI: 17.8 Nutrition - 60-Day Assessment Weight Mgt (Other Care) Height: 5 ft 8 in Weight:: 117 lb BMI: 17.8 Core - Final Assessment Hypertension Resting Blood Pressure:: 132/74 [place] [employer] Hypertension Guidelines Core - 60-Day Assessment Hypertension Resting Blood Pressure:: 132/74 [place] [employer] Hypertension Guidelines Psychosocial - 30-Day Assess Target Goals Target Goals Psychosocial - 60-Day Assess Target Goals Target Goals Psychosocial - 90-Day Assess Target Goals Target Goals Psychosocial - Final Assessmen Target Goals Target Goals Nutrition - 90-Day Assessment Weight Mgt (Other Care) Height: 5 ft 8 in Weight:: 117 lb BMI: 17.8 Nutrition - Final Assessment Program Goals Patient has diagnosis of Hyperlipidemia (ICD E78)?: Yes Weight Mgt (Other Care) Height: 5 ft 8 in Weight:: 117 lb BMI: 17.8
[2023-05-19 10:47] VITALS: BP 132/74
[2023-05-19 11:18] VITALS: BMI 18.6
[2023-05-19 11:44] VITALS: BMI 17.8
== END | disposition home or self-care (01) ==
PROVIDERS: PCP Internal Medicine
DX: Z95.5 Presence of coronary angioplasty implant and graft (principal)

== ENCOUNTER 2023-05-26 13:00 | Outpatient (RCR) | payer MEDICARE, BC, SELFPAY ==
[2023-05-19 11:44] VITALS: BMI 17.8
== END 2023-05-27 23:59 ==
LOC: CR 13:00
PROVIDERS: PCP Internal Medicine
DX: Z95.5 Presence of coronary angioplasty implant and graft (principal)
CPT/HCPCS: 93798

== ENCOUNTER 2023-06-25 13:00 | Outpatient (RCR) | payer MEDICARE, BC, SELFPAY ==
[2023-05-19 11:44] VITALS: BMI 17.8
--- NOTE | 2023-06-18 09:42 | CR.ITP_ITS ---
Exercise - Initial Assessment Visit Session #:: 11 Nutrition - Initial Assessment Weight Mgt (Other Care) Height: 5 ft 8 in Weight:: 115 lb 8 oz BMI: 17.5 Psychosocial - Initial Assess Target Goals Target Goals Patient Health Questionnaire PHQ-9 Screening 30-Day Re-eval Assessment: 1. Little interest or pleasure in doing things: Not at all 2. Feeling down, depressed, or hopeless: Not at all 3. Trouble falling or staying asleep, or sleeping too much: More than half the days 4. Feeling tired or having little energy: Nearly every day 5. Poor appetite or overeating: Not at all 6. Feeling bad about yourself -- or that you are a failure or have let yourself or your family down: Not at all 7. Trouble concentrating on things, such as reading the newspaper or watching television: Not at all 8. Moving or speaking so slowly that other people could have noticed. Or the opposite - being so fidgety or restless that you have been moving around a lot more than usual: Not at all 9. Thoughts that you would be better off , or of hurting yourself in some way: Not at all How difficult have these problems made it for you to do your work, take care of things at home, or get along with other people?: Somewhat difficult Total Score: 5 Self-Efficacy 6-Item Scale 30-Day Re-eval Assessment: We would like to know how confident you are in doing certain activities. Please select your confidence level for: Fatigue Select Number: 1 Physical Discomfort or Pain Select Number: 1 Emotional Distress Select Number: 3 Other Symptoms or Health Problems Select Number: 3 Different Tasks and Activities Select Number: 4 Medication Select Number: 6 Total Score:: 3 Nutrition Survey Nutrition Survey Instructions Scoring Instructions Exercise - 30-day Assessment Visit Date of Eval: 06/18/23 Session #:: 11 Physician Prescribed Exercise Modalities: Treadmill, Airdyne and NuStep Frequency: 3x/week for 12 weeks [36 sessions] Intensity: 60-80% of age predicted maximum heart rate reserve Duration: 30 - 45 minutes Current METSs:: 3 Target Heart Rate:: 88-110 Current RPE:: 12 Maximum Excercise HR:: 86 Resting Blood Pressure: 144/80 Maximum Exercise Blood Pressure: 150/70 EKG Type: SB to ST with occas PVC and PAC Outcomes & Goals Goals:: Verbalizes understanding of THR, RPE & goal METS by session 6, Documents in home exercise log/reports 30 min aerobic 5 day/wk by DC, Demonstrates accurate pulse taking by DC and Other additional outcome/goals: see below Intervention & Plan Exercise Program Goals: Instruct on personal THR & RPE, Instruct on MET level & personal MET goal, Show patient to take own pulse /validate performance until accurate, Instruct on home exercise and Other additional plan/int 30-day Reassessments 30 day Reassessments:: Progressing Reassessment Notes & Comments:: RPE explained Physical Activity Home Exercise Physical Activity - Home Exercise: Safe Exercise, Warm-up, Self-monitoring, Cool-Down, Home Exercise > 30 min Daily and Sitting Time <3 hours/daily Outcomes & Goals Outcomes/Goals: Demonstrates correct Warm-up/exercise Cool-Down (S3) if = 2.5 METs, Verbalizes symptoms of exercise intolerance by Session 3 (S3), Demonstrate safe equipment use (S3) & follows exercise prescrition (6) and Other: See below Intervention & Plan Plan/Intervention: Instruct warm-up & cool-down if exercising at > 2 METs, Instruct on symptoms of exercise intolerance & actions to take, Instruct & monitor on saf, Assess intial functional capacity & safety risk and Other See below 30-day Reassessments 30 day Reassessments:: Progressing Reassessment Notes & Comments:: warm up encouraged Nutrition - 30-Day Assessment Program Goals Nutrition Program Goals Patient has diagnosis of Hyperlipidemia (ICD E78)?: Yes Visit Date of Eval: 06/18/23 Session #:: 11 Cholesterol/Lipids (Other Core Measures) Determine presence & major risk factors that modify LDL goal: Cigarette smoking, Hypertension or hypertensive medication, Low HDL cholesterol <40 mg/dL*, Family history of premature CHD in Male < 55 years: female <65 yearsFa and Age men > 45 years; women >/= 55 years Outcomes/Goals: Pt IDs own risk factors & lifestyle modifications by Session 10, Verbalizes symptoms of angina & response by session 3., Pt independently manages and Other Additional Outcomes/Goals: Intervention/Plan: Advocate for lipid panel cholesterol medication if applicable, Instruct on personal lipid levels & lipid goals/NCEP guidelines, Instruct on cholesterol and Other additional plan/int 30-day Reassessments:: Progressing Reassessment Notes & Comments:: pt to attend nutrition class Diabetes (Other Core Measures) Diabetes Type: Not Applicable Weight Mgt (Other Care) Height: 5 ft 8 in Weight:: 115 lb 8 oz BMI: 17.5 Diagnosis Overweight/Obesity BMI> 30% ICD-10 E66: No Diagnosis High BMI/Morbid Obesity BMI> 35% ICD-10 Z68: No Outcomes/Goals: Pt sets, maintains & shows weight loss goal & trend during rehab and Other additional outcomes/goals Intervention/Plan: Instruct on ideal BMI & set weight loss goal w/patient, Assist pt to ID & incorporate diet changes for weight loss by S9, Refer to Structured Weight Loss program as appropriate, Encourage goal of using 250- 300dcal per session for weight loss and Other additional plan/interventions 30 day Reassessments:: Progressing Reassessment Notes & Comments:: pt to attend nutrition class Healthy Eating Habits Will attend diet classes:: Yes Outcomes/Goals:: Consume diet rich in vegs,fruits,whole grain/high fiber,fish,lean meat, Limit sat/trans fats,cholesterol & added salts & sugars and Other additional outcome/goals: Intervention/Plan:: Assess current eating habits and Other Additional plan/interventions 30-day Reassessments:: Progressing Reassessment Notes & Comments:: pt to attend nutrition class Education Gave educational materials for:: Signs & symptoms of hypoglycemia, Signs & symptoms of hyperglycemia, Relate diabetes to coronary artery disease and H ealthy eating Nutrition - 60-Day Assessment Weight Mgt (Other Care) Height: 5 ft 8 in Weight:: 115 lb 8 oz BMI: 17.5 Core - 30-Day Assessment Visit Date of Eval: 06/18/23 Session #:: 11 Medication Compliance Preventative Medication(s):: Aspirin, Statin/lipid and Beta hector H/O mental health issues: depression, anxiety, or addiction?: No Doesn?t believe in the benefits of treatment?: No Believes medications are unnecessary or harmful?: No Has a concern about medication side effects?: No Expresses concern over the cost of medications?: No Outcomes/Goals: Verbalizes medications,desired effect & common side effects @ DC, Pt self-reports following medication regimen, Keeps card in wallet w/medications listed by DC and Other additional outcome/goals: Interventions/plans: Instruct on medication effects & side effects, Review medication list w/patient every two weeks, Instruct importance of taking meds as ordered & assist problem solving and Other additional 30-day Reassessments:: Progressing Reassessment Notes & Comments:: pt encouraged to take her meds Tobacco Use Tobacco Use: Non-smoker Hypertension Hypertension Diagnosis:: Hypertension ICD-10 I10 Resting Blood Pressure:: 144/80 [place] [employer] Hypertension Guidelines Peak Exercise Blood Pressure:: 150/70 Outcomes/Goals: Able to verbalize/achieve optimal blood pressure <130/80, Incorporates diet changes & exercise for blood pressure control by DC and Other additional outcomes/goals Interventions/plan: Instruct on optimal blood pressure, hypertension & medications, Instruct on effects of sodium, alcohol, stress, exercise &hypertension and Other additional plan/interventions 30 day Reassessments:: Progressing Reassessment Notes & Comments:: pt encouraged to take her meds Tobacco Cessation Referral Smoking Cessation Referral:: No Individual Education/Counseling:: No Education Schedule Given:: Yes Psychosocial - 30-Day Assess VIsit Date of Eval: 06/18/23 Session #:: 11 History of previous Mental disease:: No Target Goals Target Goals 30-day Reassessments: 30 day Reassessments:: Met Psychosocial - 60-Day Assess Target Goals Target Goals Psychosocial - 90-Day Assess Target Goals Target Goals Psychosocial - Final Assessmen Target Goals Target Goals Nutrition - 90-Day Assessment Weight Mgt (Other Care) Height: 5 ft 8 in Weight:: 115 lb 8 oz BMI: 17.5 Nutrition - Final Assessment Weight Mgt (Other Care) Height: 5 ft 8 in Weight:: 115 lb 8 oz BMI: 17.5
[2023-06-18 09:50] VITALS: BP 144/80; BMI 17.5
== END 2023-06-27 23:59 ==
LOC: CR 13:00
PROVIDERS: PCP Internal Medicine
DX: Z95.5 Presence of coronary angioplasty implant and graft (principal)
CPT/HCPCS: 93798

== ENCOUNTER → 2023-07-08 | Outpatient (CLI) | payer MEDICARE, BC, SELFPAY ==
[2023-05-19 11:44] VITALS: BMI 17.8
[2023-06-18 09:50] VITALS: BMI 17.5
--- NOTE | 2023-07-08 10:27 | BI_ITS ---
MAMMOGRAPHY - BILATERAL SCREENING REASON FOR EXAM: Female, 73 years old. Routine annual screening examination. PERTINENT HISTORY: Mother with breast cancer. History of bilateral breast implants. TECHNIQUE: Digital bilateral breast hollis (3D mammographic acquisition) in the CC and MLO projections. 2-D mediolateral oblique (MLO) and craniocaudad (CC) views of both breasts were obtained. CAD: Full Field Digital Mammography with Computer Added Detection was performed. COMPARISON: Comparison is made with prior study dated June 05, 2022 and May 29, 2021. FINDINGS: Breast Composition: The breasts are heterogeneously dense, which may obscure small masses. There are no dominant masses or suspicious calcifications. Stable appearance of the bilateral breast implants. A tissue clip marker is once again seen in the upper outer aspect of the left breast. No other significant abnormalities are identified. There has been no significant change since the prior study. BI/SCRN MAMM (CAD)W/HOLLIS BILAT IMPRESSION: Stable bilateral screening mammogram. Yearly follow-up mammogram recommended. (A) ASSESSMENT CATEGORY: BIRADS Category 2: Benign. A letter regarding these results will be sent to the patient by the facility within 30 days. Approximately 10% of breast cancers are not detected by mammography. A normal mammogram should not delay biopsy of a clinically suspicious abnormality. [id number] Electronically Signed: Miller Gonzales MD at 11:13 EST ,
== END | disposition home or self-care (01) ==
LOC: OPBI 10:27
PROVIDERS: PCP Internal Medicine; Referring Provider Obstetrics & Gynecology; Visit Provider Obstetrics & Gynecology
DX: Z12.31 Encounter for screening mammogram for malignant neoplasm of breast (principal); Z80.3 Family history of malignant neoplasm of breast
CPT/HCPCS: 77063; 77067

== ENCOUNTER 2023-07-28 13:00 | Outpatient (RCR) | payer MEDICARE, BC, SELFPAY ==
[2023-06-18 09:50] VITALS: BMI 17.5
[2023-06-28 00:18] VITALS: BP 144/80
--- NOTE | 2023-07-19 08:07 | PCM.CR.ITP ---
Nutrition - Initial Assessment Weight Mgt (Other Care) Height: 5 ft 8 in Weight:: 114 lb 8 oz BMI: 17.4 Psychosocial - Initial Assess Target Goals Target Goals Patient Health Questionnaire PHQ-9 Screening 60-Day Re-eval Assessment: 1. Little interest or pleasure in doing things: Not at all 2. Feeling down, depressed, or hopeless: Not at all 3. Trouble falling or staying asleep, or sleeping too much: More than half the days 4. Feeling tired or having little energy: Nearly every day 5. Poor appetite or overeating: Not at all 6. Feeling bad about yourself -- or that you are a failure or have let yourself or your family down: Not at all 7. Trouble concentrating on things, such as reading the newspaper or watching television: Not at all 8. Moving or speaking so slowly that other people could have noticed. Or the opposite - being so fidgety or restless that you have been moving around a lot more than usual: Not at all 9. Thoughts that you would be better off , or of hurting yourself in some way: Not at all How difficult have these problems made it for you to do your work, take care of things at home, or get along with other people?: Somewhat difficult Total Score: 5 Self-Efficacy 6-Item Scale 60-Day Re-eval Assessment: We would like to know how confident you are in doing certain activities. Please select your confidence level for: Fatigue Select Number: 1 Physical Discomfort or Pain Select Number: 1 Emotional Distress Select Number: 3 Other Symptoms or Health Problems Select Number: 3 Different Tasks and Activities Select Number: 4 Medication Select Number: 6 Total Score:: 3 Nutrition Survey Nutrition Survey Instructions Scoring Instructions Exercise - 60-day Assessment Visit Date of Eval: 07/19/23 Session #:: 22 Physician Prescribed Exercise Modalities: Treadmill, Airdyne and NuStep Frequency: 3x/week for 12 weeks [36 sessions] Intensity: 60-80% of age predicted maximum heart rate reserve Duration: 30 - 45 minutes Current METSs:: 3.5 Target Heart Rate:: 110-124 Current RPE:: 11-12 Maximum Excercise HR:: 82 Resting Blood Pressure: 122/76 Maximum Exercise Blood Pressure: 124/78 EKG Type: SB to NSR with occas PVC and PAC Outcomes & Goals Goals:: Verbalizes understanding of THR, RPE & goal METS by session 6, Documents in home exercise log/reports 30 min aerobic 5 day/wk by DC, Demonstrates accurate pulse taking by DC and Other additional outcome/goals: see below Intervention & Plan Exercise Program Goals: Instruct on personal THR & RPE, Instruct on MET level & personal MET goal, Show patient to take own pulse /validate performance until accurate, Instruct on home exercise and Other additional plan/int 30-day Reassessments 30 day Reassessments:: Progressing Reassessment Notes & Comments:: RPE explained Physical Activity Home Exercise Physical Activity - Home Exercise: Safe Exercise, Warm-up, Self-monitoring, Cool-Down, Home Exercise > 30 min Daily and Sitting Time <3 hours/daily Outcomes & Goals Outcomes/Goals: Demonstrates correct Warm-up/exercise Cool-Down (S3) if = 2.5 METs, Verbalizes symptoms of exercise intolerance by Session 3 (S3), Demonstrate safe equipment use (S3) & follows exercise prescrition (6) and Other: See below Intervention & Plan Plan/Intervention: Instruct warm-up & cool-down if exercising at > 2 METs, Instruct on symptoms of exercise intolerance & actions to take, Instruct & monitor on saf, Assess intial functional capacity & safety risk and Other See below 30-day Reassessments 30 day Reassessments:: Progressing Reassessment Notes & Comments:: warm up encouraged Nutrition - 30-Day Assessment Weight Mgt (Other Care) Height: 5 ft 8 in Weight:: 114 lb 8 oz BMI: 17.4 Nutrition - 60-Day Assessment Program Goals Nutrition Program Goals Patient has diagnosis of Hyperlipidemia (ICD E78)?: Yes Visit Date of Eval: 07/19/23 Session #:: 22 Cholesterol/Lipids (Other Core Measures) Determine presence & major risk factors that modify LDL goal: Hypertension or hypertensive medication, Low HDL cholesterol <40 mg/dL*, Family history of premature CHD in Male < 55 years: female <65 yearsFa and Age men > 45 years; women >/= 55 years Outcomes/Goals: Pt IDs own risk factors & lifestyle modifications by Session 10, Verbalizes symptoms of angina & response by session 3., Pt independently manages and Other Additional Outcomes/Goals: Intervention/Plan: Advocate for lipid panel cholesterol medication if applicable, Instruct on personal lipid levels & lipid goals/NCEP guidelines, Instruct on cholesterol and Other additional plan/int 30-day Reassessments:: Progressing Reassessment Notes & Comments:: pt to attend nutrition class Diabetes (Other Core Measures) Diabetes Type: Not Applicable Weight Mgt (Other Care) Height: 5 ft 8 in Weight:: 114 lb 8 oz BMI: 17.4 Diagnosis Overweight/Obesity BMI> 30% ICD-10 E66: No Diagnosis High BMI/Morbid Obesity BMI> 35% ICD-10 Z68: No Outcomes/Goals: Pt sets, maintains & shows weight loss goal & trend during rehab and Other additional outcomes/goals Intervention/Plan: Instruct on ideal BMI & set weight loss goal w/patient, Assist pt to ID & incorporate diet changes for weight loss by S9, Refer to Structured Weight Loss program as appropriate, Encourage goal of using 250-300dcal per session for weight loss and Other additional plan/interventions 30 day Reassessments:: Progressing Reassessment Notes & Comments:: pt to attend nutrition class Healthy Eating Habits Will attend diet classes:: Yes Outcomes/Goals:: Consume diet rich in vegs,fruits,whole grain/high fiber,fish,lean meat, Limit sat/trans fats,cholesterol & added salts & sugars and Other additional outcome/goals: Intervention/Plan:: Assess current eating habits and Other Additional plan/interventions 30-day Reassessments:: Progressing Reassessment Notes & Comments:: pt to attend nutrition class Education Gave educational materials for:: Signs & symptoms of hypoglycemia, Signs & symptoms of hyperglycemia, Relate diabetes to coronary artery disease and Healthy eating Core - 60-Day Assessment Visit Date of Eval: 07/19/23 Session #:: 22 Medication Compliance Preventative Medication(s):: Aspirin, Statin/lipid and Beta hector H/O mental health issues: depression, anxiety, or addiction?: No Doesn?t believe in the benefits of treatment?: No Believes medications are unnecessary or harmful?: No Has a concern about medication side effects?: No Expresses concern over the cost of medications?: No Outcomes/Goals: Verbalizes medications,desired effect & common side effects @ DC, Pt self-reports following medication regimen, Keeps card in wallet w/medications listed by DC and Other additional outcome/goals: Interventions/plans: Instruct on medication effects & side effects, Review medication list w/patient every two weeks, Instruct importance of taking meds as ordered & assist problem solving and Other additional 30-day Reassessments:: Progressing Reassessment Notes & Comments:: discontinued brilinta and started plavix. stopped lipitor, increased Nifedipine increased from 30 to 60 mg daily. Tobacco Use Tobacco Use: Non-smoker Hypertension Hypertension Diagnosis:: Hypertension ICD-10 I10 Resting Blood Pressure:: 122/76 [place] [employer] Hypertension Guidelines Peak Exercise Blood Pressure:: 124/78 Outcomes/Goals: Able to verbalize/achieve optimal blood pressure <130/80, Incorporates diet changes & exercise for blood pressure control by DC and Other additional outcomes/goals Interventions/plan: Instruct on optimal blood pressure, hypertension & medications, Instruct on effects of sodium, alcohol, stress, exercise &hypertension and Other additional plan/interventions 30 day Reassessments:: Progressing Reassessment Notes & Comments:: Nifedipine increased from 30 to 60 mg daily. Tobacco Cessation Referral Smoking Cessation Referral:: No Individual Education/Counseling:: No Education Schedule Given:: Yes Psychosocial - 30-Day Assess Target Goals Target Goals Outcomes/Goals: See list Psychosocial Outcomes/Goals:: ID's personal stressors & 2 strategies to manage stress by discharge and Other Additional outcome/goals: Psychosocial - 60-Day Assess VIsit Date of Eval: 07/19/23 Session #:: 22 History of previous Mental disease:: No Target Goals Target Goals Outcomes/Goals: See list Psychosocial Outcomes/Goals:: ID's personal stressors & 2 strategies to manage stress by discharge and Other Additional outcome/goals: Intervention/Plan: See List Interventions/Plan:: Assess stressors,coping strategies & signs of derpression on admission, Instruct/assist pt to develop coping & personal stress Mgt strategies, Refer to Behavioral Health if appropriate, Refer to Physician if appropriate, Instruct patient to recognize signs & symptoms of depression, Instruct patient to recog and Other additional plan/intervention 30-day Reassessments: 30 day Reassessments:: Met Psychosocial - 90-Day Assess Target Goals Target Goals Psychosocial - Final Assessmen Target Goals Target Goals Nutrition - 90-Day Assessment Weight Mgt (Other Care) Height: 5 ft 8 in Weight:: 114 lb 8 oz BMI: 17.4 Nutrition - Final Assessment Weight Mgt (Other Care) Height: 5 ft 8 in Weight:: 114 lb 8 oz BMI: 17.4
[2023-07-19 08:19] VITALS: BP 122/76; BMI 17.4
== END 2023-07-28 23:59 ==
LOC: CR 13:00
PROVIDERS: PCP Internal Medicine
DX: Z95.5 Presence of coronary angioplasty implant and graft (principal)
CPT/HCPCS: 93798

== ENCOUNTER 2023-08-25 13:00 | Outpatient (RCR) | payer MEDICARE, BC, SELFPAY ==
[2023-07-19 08:19] VITALS: BMI 17.4
[2023-07-29 00:47] VITALS: BP 122/76; BP 144/80
--- NOTE | 2023-08-18 10:03 | CR.ITP_ITS ---
Nutrition - Initial Assessment Weight Mgt (Other Care) Height: 5 ft 8 in Weight:: 115 lb 8 oz BMI: 17.5 Psychosocial - Initial Assess Target Goals Target Goals Patient Health Questionnaire PHQ-9 Screening 90-Day Re-eval Assessment: 1. Little interest or pleasure in doing things: Not at all 2. Feeling down, depressed, or hopeless: Not at all 3. Trouble falling or staying asleep, or sleeping too much: More than half the days 4. Feeling tired or having little energy: Nearly every day 5. Poor appetite or overeating: Not at all 6. Feeling bad about yourself -- or that you are a failure or have let yourself or your family down: Not at all 7. Trouble concentrating on things, such as reading the newspaper or watching television: Not at all 8. Moving or speaking so slowly that other people could have noticed. Or the opposite - being so fidgety or restless that you have been moving around a lot more than usual: Not at all 9. Thoughts that you would be better off , or of hurting yourself in some way: Not at all How difficult have these problems made it for you to do your work, take care of things at home, or get along with other people?: Somewhat difficult Total Score: 5 Self-Efficacy 6-Item Scale 90-Day Re-eval Assessment: We would like to know how confident you are in doing certain activities. Please select your confidence level for: Fatigue Select Number: 1 Physical Discomfort or Pain Select Number: 1 Emotional Distress Select Number: 3 Other Symptoms or Health Problems Select Number: 3 Different Tasks and Activities Select Number: 4 Medication Select Number: 6 Total Score:: 3 Nutrition Survey Nutrition Survey Instructions Scoring Instructions Exercise - 90-day Assessment Visit Date of Eval: 08/18/23 Session #:: 33 Physician Prescribed Exercise Modalities: Treadmill, Airdyne and NuStep Frequency: 3x/week for 12 weeks [36 sessions] Intensity: 60-80% of age predicted maximum heart rate reserve Duration: 30 - 45 minutes Current METSs:: 3.5 Target Heart Rate:: 110-124 Current RPE:: 12 Maximum Excercise HR:: 85 Resting Blood Pressure: 100/72 Maximum Exercise Blood Pressure: 160/74 EKG Type: SB to NSR with occas PVC and PAC Outcomes & Goals Goals:: Verbalizes understanding of THR, RPE & goal METS by session 6, Documents in home exercise log/reports 30 min aerobic 5 day/wk by DC, Demonstrates accu rate pulse taking by DC and Other additional outcome/goals: see below Intervention & Plan Exercise Program Goals: Instruct on personal THR & RPE, Instruct on MET level & personal MET goal, Show patient to take own pulse /validate performance until accurate, Instruct on home exercise and Other additional plan/int 30-day Reassessments 30 day Reassessments:: Met Physical Activity Home Exercise Physical Activity - Home Exercise: Safe Exercise, Warm-up, Self-monitoring, Cool-Down, Home Exercise > 30 min Daily and Sitting Time <3 hours/daily Outcomes & Goals Outcomes/Goals: Demonstrates correct Warm-up/exercise Cool-Down (S3) if = 2.5 METs, Verbalizes symptoms of exercise intolerance by Session 3 (S3), Demonstrate safe equipment use (S3) & follows exercise prescrition (6) and Other: See below Intervention & Plan Plan/Intervention: Instruct warm-up & cool-down if exercising at > 2 METs, Instruct on symptoms of exercise intolerance & actions to take, Instruct & monitor on saf, Assess intial functional capacity & safety risk and Other See below 30-day Reassessments 30 day Reassessments:: Met Nutrition - 30-Day Assessment Weight Mgt (Other Care) Height: 5 ft 8 in Weight:: 115 lb 8 oz BMI: 17.5 Nutrition - 60-Day Assessment Weight Mgt (Other Care) Height: 5 ft 8 in Weight:: 115 lb 8 oz BMI: 17.5 Core - 90 Day Assessment Visit Date of Eval: 08/18/23 Session #:: 33 Medication Compliance Preventative Medication(s):: Aspirin and Beta hector H/O mental health issues: depression, anxiety, or addiction?: No Doesn?t believe in the benefits of treatment?: No Believes medications are unnecessary or harmful?: No Has a concern about medication side effects?: No Expresses concern over the cost of medications?: No Outcomes/Goals: Verbalizes medications,desired effect & common side effects @ DC, Pt self-reports following medication regimen, Keeps card in wallet w/medications listed by DC and Other additional outcome/goals: Interventions/plans: Instruct on medication effects & side effects, Review medication list w/patient every two weeks, Instruct importance of taking meds as ordered & assist problem solving and Other additional 30-day Reassessments:: Met Reassessment Notes & Comments:: 07/02/23 increased nefedipine to 60 mg daily and stopped lipitor due to elevated liver enzymes Tobacco Use Tobacco Use: Non-smoker Hypertension Hypertension Diagnosis:: Hypertension ICD-10 I10 Resting Blood Pressure:: 100/72 [place] [employer] Hypertension Guidelines Peak Exercise Blood Pressure:: 160/74 Outcomes/Goals: Able to verbalize/achieve optimal blood pressure <130/80, Incorporates diet changes & exercise for blood pressure control by DC and Other additional outcomes/goals Interventions/plan: Instruct on optimal blood pressure, hypertension & medications, Instruct on effects of sodium, alcohol, stress, exercise &hypertension and Other additional plan/interventions 30 day Reassessments:: Met Tobacco Cessation Referral Smoking Cessation Referral:: No Individual Education/Counseling:: No Education Schedule Given:: Yes Psychosocial - 30-Day Assess Target Goals Target Goals Psychosocial - 60-Day Assess Target Goals Target Goals Psychosocial - 90-Day Assess VIsit Date of Eval: 08/18/23 Session #:: 33 History of previous Mental disease:: No Target Goals Target Goals Outcomes/Goals: See list Psychosocial Outcomes/Goals:: ID's personal stressors & 2 strategies to manage stress by discharge and Other Additional outcome/goals: Intervention/Plan: See List Interventions/Plan:: Assess stressors,coping strategies & signs of derpression on admission, Instruct/assist pt to develop coping & personal stress Mgt strategies, Refer to Behavioral Health if appropriate, Refer to Physician if appropriate, Instruct patient to recognize signs & symptoms of depression, Instruct patient to recog and Other additional plan/intervention 30-day Reassessments: 30 day Reassessments:: Met Psychosocial - Final Assessmen Target Goals Target Goals Nutrition - 90-Day Assessment Program Goals Nutrition Program Goals Patient has diagnosis of Hyperlipidemia (ICD E78)?: Yes Visit Date of Eval: 08/18/23 Session #:: 33 Cholesterol/Lipids (Other Core Measures) Determine presence & major risk factors that modify LDL goal: Hypertension or hypertensive medication, Low HDL cholesterol <40 mg/dL*, Family history of premature CHD in Male < 55 years: female <65 yearsFa and Age men > 45 years; women >/= 55 years Outcomes/Goals: Pt IDs own risk factors & lifestyle modifications by Session 10, Verbalizes symptoms of angina & response by session 3., Pt independently manages and Other Additional Outcomes/Goals: Intervention/Plan: Advocate for lipid panel cholesterol medication if applicable, Instruct on personal lipid levels & lipid goals/NCEP guidelines, Instruct on cholesterol and Other additional plan/int 30-day Reassessments:: Met Diabetes (Other Core Measures) Diabetes Type: Not Applicable Weight Mgt (Other Care) Height: 5 ft 8 in Weight:: 115 lb 8 oz BMI: 17.5 Diagnosis Overweight/Obesity BMI> 30% ICD-10 E66: No Diagnosis High BMI/Morbid Obesity BMI> 35% ICD-10 Z68: No Outcomes/Goals: Pt sets, maintains & shows weight loss goal & trend during rehab and Other additional outcomes/goals Intervention/Plan: Instruct on ideal BMI & set weight loss goal w/patient, Assist pt to ID & incorporate diet changes for weight loss by S9, Refer to Structured Weight Loss program as appropriate, Encourage goal of using 250- 300dcal per session for weight loss and Other additional plan/interventions 30 day Reassessments:: Met Healthy Eating Habits Will attend diet classes:: Yes Outcomes/Goals:: Consume diet rich in vegs,fruits,whole grain/high fiber,fish,lean meat, Limit sat/trans fats,cholesterol & added salts & sugars and Other additional outcome/goals: Intervention/Plan:: Assess current eating habits and Other Additional plan/interventions 30-day Reassessments:: Met Education Gave educational materials for:: Signs & symptoms of hypoglycemia, Signs & symptoms of hyperglycemia, Relate diabetes to coronary artery disease and Healthy eating Nutrition - Final Assessment Weight Mgt (Other Care) Height: 5 ft 8 in Weight:: 115 lb 8 oz BMI: 17.5
[2023-08-18 10:13] VITALS: BP 100/72; BMI 17.5
== END 2023-08-26 23:59 ==
LOC: CR 13:00
PROVIDERS: PCP Internal Medicine
DX: Z95.5 Presence of coronary angioplasty implant and graft (principal)
CPT/HCPCS: 93798

== ENCOUNTER 2023-09-01 13:00 | Outpatient (RCR) | payer MEDICARE, BC, SELFPAY ==
[2023-08-18 10:13] VITALS: BMI 17.5
[2023-08-27 00:34] VITALS: BP 100/72; BP 122/76; BP 144/80
== END 2023-09-26 23:59 ==
LOC: CR 13:00
PROVIDERS: PCP Internal Medicine
DX: Z95.5 Presence of coronary angioplasty implant and graft (principal)
CPT/HCPCS: 93798

== ENCOUNTER → 2023-10-19 | Outpatient (CLI) | payer MEDICARE, BC, SELFPAY ==
[2023-08-18 10:13] VITALS: BMI 17.5
--- NOTE | 2023-10-19 12:23 | US_ITS ---
PROCEDURE: ULTRASOUND OF THE FEMALE PELVIS - COMPLETE REASON FOR EXAM: Female, 73 years old. Dyspareunia prior hysterectomy in the 1980s TECHNIQUE: Transabdominal and Transvaginal TECHNICAL QUALITY: Adequate. COMPARISON: Pelvic ultrasound dated July 17, 2020 FINDINGS: The uterus is absent consistent with prior known history of hysterectomy. The right ovary is non-visualized. There is no visualized right adnexal mass or complex lesion. The left ovary is visualized. The left ovary measures 2.1 x 1.5 x 1.2 cm. There is no left ovarian cyst or ovarian mass. There is no visualized left adnexal mass or complex lesion. A 1.6 cm dominant follicle is present. Normal color vascular flow is demonstrated in left ovary. There is no fluid in the cul-de-sac. US/Pelvic w/ Transvaginal IMPRESSION: 1. Negative pelvic ultrasound exam. Electronically Signed: Bruce Najera MD at 14:29 EDT ,
== END | disposition home or self-care (01) ==
LOC: OPUS 12:23
PROVIDERS: PCP Internal Medicine; Referring Provider Obstetrics & Gynecology; Visit Provider Obstetrics & Gynecology
DX: N94.10 Unspecified dyspareunia (principal)
CPT/HCPCS: 76830; 76856

== ENCOUNTER 2024-01-14 12:52 | Observation (INO) | payer MEDICARE, BC, SELFPAY ==
[2023-08-18 10:13] VITALS: BMI 17.5
[2024-01-14] VITALS (7 sets, daily range): BP systolic 123–206; BP diastolic 51–88; PULSE 54–63; RESP 15–18; TEMP 36.3–36.7; O2SAT 98–100; BMI 17.6; BMI 17.4; BMI 17.9
--- NOTE | 2024-01-14 13:05 | EKG12_ITS ---
Test Reason : general Blood Pressure : / mmHG Vent. Rate : 072 BPM Atrial Rate : 072 BPM P-R Int : 166 ms QRS Dur : 072 ms QT Int : 376 ms P-R-T Axes : 078 062 058 degrees QTc Int : 411 ms Normal sinus rhythm Normal ECG Confirmed by KAILEE REESE, NEYDA ([id number]), visual effects editor KRYSTAL CLAIRE ([id number]) on 01/17/2024 11:14:53 AM Referred By: Confirmed By:NEYDA DUGAN MD
--- NOTE | 2024-01-14 13:24 | CT_ITS ---
STUDY: CT BRAIN WITHOUT CONTRAST REASON FOR EXAM: Female, 73 years old. Dizzy, HTN. Confusion. RADIATION DOSAGE (If Supplied By Facility): CTDIvol = ( 44.99 ) mGy, DLP = ( 779.24 ) mGycm TECHNIQUE: Transaxial CT imaging of the brain was performed without administration of intravenous contrast material. Individualized dose optimization techniques were used for this CT. COMPARISON: No relevant priors. FINDINGS: Normal soft tissue structures. Normal calvarium. There is mild cerebral atrophy with widening of the extra-axial spaces and ventricular dilatation. There are areas of decreased attenuation within the white matter tracts of the supratentorial brain, consistent with microvascular disease changes. Normal basal ganglia and thalami. Normal brainstem. Normal cerebellum. There is no intracranial hemorrhage. There are no findings of an acute ischemic infarction. Normal visualized paranasal sinuses. CT/Brain/Head without Contrast IMPRESSION: Chronic involutional changes of the brain. Electronically Signed: Miller Gonzales MD at 13:50 EDT ,
--- NOTE | 2024-01-14 13:24 | CT_ITS ---
STUDY: CT CERVICAL SPINE WITHOUT CONTRAST REASON FOR EXAM: Female, 73 years old. Neck pain. Dizziness and weakness. Confusion. RADIATION DOSAGE (If Supplied By Facility): CTDIvol = ( 11.87 ) mGy, DLP = ( 211.59 ) mGycm TECHNIQUE: High resolution transaxial imaging was performed without contrast material. Sagittal and coronal images were reconstructed. Individualized dose optimization techniques were used for this CT. COMPARISON: None FINDINGS: Normal craniovertebral junction. Normal anterior atlantoaxial articulation. Normal odontoid process. Normal cervical lordosis. Normal vertebral bodies and posterior osseous elements. C2-3: Normal endplates. Normal disc height and morphology. Normal central canal and intervertebral neuroforamina. C3-4: Minimal anterior listhesis of C3 on C4 most likely secondary to the facet joint osteoarthritis and hypertrophy. C4-5: Marked degree of disc space narrowing. Spondylosis. No significant stenosis seen. C5-6: Marked degree of disc space narrowing with spondylosis. No significant stenosis seen. C6-7: Moderate degree of disc space narrowing. Spondylosis. No significant stenosis seen. C7-T1: Normal endplates. Normal disc height and morphology. Normal central canal and intervertebral neuroforamina. Scarring at the right lung apex. CT/Spine Cervical without Contras IMPRESSION: Multilevel degenerative changes, as described above. Electronically Signed: Miller Gonzales MD at 13:53 EDT ,
--- NOTE | 2024-01-14 13:48 | RAD_ITS ---
STUDY: X-RAY CHEST REASON FOR EXAM: Female, 73 years old. Chest pain TECHNIQUE: PA and lateral views of the chest. COMPARISON: Comparison is made with prior study dated August 20, 2017. FINDINGS: EKG electrodes are seen. Bilateral breast implants are seen. There is hyperinflation of the lungs consistent with chronic obstructive lung disease (COPD). There is no demonstrated pleural abnormality. Normal size heart. Normal mediastinum and rashaad. Normal visualized pulmonary arteries. There is atherosclerotic calcification of the aortic arch with tortuosity. There is demineralization of the osseous structures. Normal visualized ribs, clavicles, and shoulders. There is no demonstrated abnormality of the visualized soft tissue structures of the upper abdomen. RAD/Chest PA and Lateral IMPRESSION: Hyperinflation. The lungs are clear. Electronically Signed: Miller Gonzales MD at 13:58 EDT ,
[2024-01-14 14:05] LABS: Absolute Lymphocyte Count 0.88 X10^3/uL (0.83-4.51); Absolute Neutrophil Count 4.8 X10^3/uL (2.0-7.7); Basophil# 0.01 X10^3/uL; Basophil% 0.2 % (0-1); Eosinophil# 0.01 X10^3/uL; Eosinophils% 0.2 % (0-5); Hematocrit 40.7 % (37-47); Lymphocyte # 0.88 X10^3/ul (0.83-4.51); Mean Corp Hgb Conc 34.4 g/dL (32-36); Mean Corpuscular Hgb 29.6 pg (27.0-32.0); Mean Platelet Vol. 9.3 fl (6.2-12.0); Monocyte# 0.55 X10^3/uL; Monocyte% 8.8 % (0-10); NRBC Flagged by Analyzer 0 % (0-5); Neutrophil # 4.81 X10^3/uL (2.7-7.7); Neutrophil % 76.5 % (47-70); Platelet Count 256 K/mm3 (150-450); RBC Distribution Width CV 12.6 % (11.6-14.6); RBC Distribution Width SD 39.3 fl (35.1-43.9); Red Blood Count 4.73 M/mm3 (4.2-5.4); White Blood Count 6.3 K/mm3 (4.4-11.0)
[2024-01-14 14:12] LABS: Anion Gap 10 (5-15); BUN 14 mg/dL (7-18); BUN/Creat Ratio 11.5 RATIO (10-20); Calcium,Total 9.5 mg/dL (8.5-10.1); Chloride 92 mmol/L (98-107); Creatinine, Serum 1.22 mg/dL (0.55-1.02); EST Glomerular Filtration Rate 46 mL/min (>60); Est Glom Filt Rate - Afr Amer 55 mL/min (>60); Estimated Creatinine Clearance 34.11 ml/min; Glucose 127 mg/dL (74-106); Magnesium 2.1 mg/dL (1.6-2.6); Potassium 4.4 mmol/L (3.5-5.1); Sodium Level 126 mmol/L (136-145); Thyroid Stim Hormone (TSH) 3.82 uIU/mL (0.358-3.74); Troponin-I HS (w/2H Reflex) 13 pg/mL (3.0-54.0)
[2024-01-14 14:19] LABS: BNP,B-Type NATRIURETIC PEPTIDE 46.1 pg/mL (0-100)
--- NOTE | 2024-01-14 14:20 | EX.ED.DYSGE1 ---
HPI History of Present Illness Chief Complaint: Weakness Narrative Narrative: Patient is a 73 female with history of hypertension, HLD, MVP, and undifferentiated mix, connective tissue disorder, presenting from home for sensation of dizziness, weakness, confusion as well, right neck, pain. Vision states correlates with high blood pressure. She states that she recently started spironolactone and stopped her nifedipine. States that she has has been on spironolactone for about a month. Notes she had 2 episodes of high blood pressure December 29 January 01. At that time she took total to half dose of the phentermine which brought her blood pressure down. She does that she gets intermittent twinges in her chest but denies any chest comfort right now. She is also having increased neck pain and feels numb on the left side of her neck which is chronic. She states she was looking up and is worried that maybe she injured her neck today. Patient does feel that her balance has been off but she was set to a labral tear in her left hip and a neuroma in her right foot. She states for months she has had issues where she will feel off balance. In addition patient had an ME back in March 2023 and has been feeling short of breath and having chest pressure since. No acute change in this today. [facility] Medical History Dyspareunia in female NSTEMI (non-ST elevated myocardial infarction) Hyperlipidemia H/O placement of stent in anterior descending branch of left coronary artery History of ME (myocardial infarction) Mass of left breast Lichen plano-pilaris Differentiation syndrome Abnormal Pap smear of cervix Connective tissue disease, undifferentiated Osteoporosis Rosacea Fibroids Mitral valve prolapse Hypertension Arthritis Basal cell carcinoma Home Medications ?Medication ?Instructions ?Recorded ?Last Taken ?Type calcium citrate 315 mg 1 tab PO DAILY 05/27/20 01/14/24 History calcium-vitamin D3 6.25 mcg (250 unit) tablet (Citracal + Vitamin D Maximum) ezetimibe 10 mg tablet (Zetia) 10 mg PO DAILY 05/29/21 01/14/24 History valsartan 160 mg tablet 160 mg PO BID 07/08/23 01/14/24 History Lactobacillus acidophilus 10 10,000 mmu cells PO DAILY 09/27/23 01/14/24 History billion cell capsule aspirin 81 mg tablet,delayed 81 mg PO DAILY 09/27/23 01/14/24 History release clopidogrel 75 mg tablet 75 mg PO QODAY 09/27/23 01/14/24 History diclofenac sodium 1 % topical gel 4 g topical 4X/DAY PRN JOINT PAIN 09/27/23 Unknown History famotidine 20 mg tablet (Pepcid) 20 mg PO DAILY 09/27/23 01/14/24 History metoprolol succinate 25 mg 25 mg PO DAILY 09/27/23 01/14/24 History tablet,extended release 24 hr psyllium husk 0.4 gram capsule 0.4 g PO DAILY 09/27/23 01/13/24 History valacyclovir 1 gram tablet 1,000 mg PO DAILY PRN cold sores 09/27/23 Unknown History (Valtrex) ammonium lactate 12 % topical cream 1 applic topical PRN PRN dry skin 01/14/24 Unknown History estradiol 10 mcg vaginal tablet 10 mcg vaginal FR 01/14/24 01/14/24 History (Yuvafem) metronidazole 250 mg tablet 250 mg PO DAILY 01/14/24 01/11/24 History multivitamin (Daily Multi-Vitamin 1 tab PO DAILY 01/14/24 01/14/24 History tablet) nifedipine 30 mg tablet,extended 15 mg PO DAILY 01/14/24 01/14/24 History release 24 hr pravastatin 10 mg tablet 10 mg PO DAILY 01/14/24 01/14/24 History spironolactone 25 mg tablet 25 mg PO DAILY 01/14/24 01/14/24 History Allergy/AdvReac Type Severity Reaction Status Date / Time ampicillin Allergy Mild unknown Verified 01/14/24 12:54 cephalexin Allergy Mild unknown Verified 01/14/24 12:54 clarithromycin Allergy Mild unknown Verified 01/14/24 12:54 clindamycin Allergy Mild unknown Verified 01/14/24 12:54 codeine Allergy Mild Unknown Verified 01/14/24 12:54 erythromycin base Allergy Mild unknown Verified 01/14/24 12:54 ibuprofen Allergy Mild unknown Verified 01/14/24 12:54 meperidine Allergy Mild unknown Verified 01/14/24 12:54 naproxen Allergy Mild unknown Verified 01/14/24 12:54 Penicillins Allergy Mild unknown Verified 01/14/24 12:54 sulfamethoxazole Allergy Mild unknown Verified 01/14/24 12:54 sulfanilamide Allergy Mild PT UNSURE Verified 01/14/24 12:54 OF REACTION tetracycline Allergy Mild unknown Verified 01/14/24 12:54 trimethoprim Allergy Mild unknown Verified 01/14/24 12:54 naltrexone Allergy Other Verified 01/14/24 12:54 prochlorperazine (From Allergy Other Verified 01/14/24 12:54 Compazine) amlodipine AdvReac Other Verified 01/14/24 12:54 Benzodiazepines AdvReac Other Verified 01/14/24 12:54 nebivolol (From Bystolic) AdvReac Other Verified 01/14/24 12:54 NSAIDS (Non-Steroidal AdvReac Other Verified 01/14/24 12:54 Anti-Inflamma polyethylene glycol 400 AdvReac Other Verified 01/14/24 12:54 (From Systane (propylene glycol)) propylene glycol (From AdvReac Other Verified 01/14/24 12:54 Systane (propylene glycol)) simvastatin AdvReac Other Verified 01/14/24 12:54 ticagrelor (From Brilinta) AdvReac Other Verified 01/14/24 12:54 Family History Father Alcoholism Throat cancer Mother Thyroid disorder Breast cancer Heart disease Blindness Cataract Glaucoma Macular degeneration Other Abnormal Pap smear of cervix Surgical History Hx of appendectomy Breast implant status S/P dilation and curettage S/P hysterectomy S/P foot surgery, left S/P tonsillectomy and adenoidectomy Social History Smoking Status: Heavy Smoker (>10/day) alcohol intake: current details: social substance use type: does not use caffeine: Yes what type of physical activity do you participate in: walking seatbelt use: always do you feel safe at home: Yes additional social history: [employer]- Retired Patient is retired ROS ROS ED Constitutional Constitutional ED: Reports other Details: Generalized weakness, malaise ; Denies chills or fever(s) Eyes Eyes: Denies change in vision ENT ENT ED: Denies sore throat Cardiovascular Cardiovascular: Reports chest pain; Denies palpitations Respiratory/Chest Respiratory/Chest: Reports dyspnea Gastrointestinal Gastrointestinal: Denies abdominal pain, nausea or vomiting Genitourinary Genitourinary ED: Denies dysuria or urinary frequency Musculoskeletal Musculoskeletal: Reports arthralgias, myalgias and neck pain Integumentary Denies rash Neurologic Neurologic: Reports headache(s) and weakness; Denies paresthesias Hematologic/Lymphatic Hematologic/Lymphatic: Reports easy bleeding EXAM Physical Exam Const Vital Signs: 01/14/24 12:54 01/14/24 13:05 01/14/24 13:30 Temperature 97.3 F L Temperature Source Temporal Pulse Rate 63 Respiratory Rate 15 Respiratory Effort Normal Respiratory Pattern Normal Blood Pressure 206/70 H Blood Pressure Mean 115 Pulse Ox 100 98 Oxygen Delivery Method Room Air Room Air 01/14/24 14:53 01/14/24 15:23 01/14/24 15:53 Temperature 97.9 F Temperature Source Pulse Rate 61 58 L 62 Respiratory Rate 16 17 18 Respiratory Effort Respiratory Pattern Blood Pressure 165/85 H 161/88 H 161/88 H Blood Pressure Mean 111 112 112 Pulse Ox 100 98 98 Oxygen Delivery Method Room Air Room Air Positive well nourished and well developed General Appearance ED: well developed and NAD; Negative for pallor HEENT Reports moist mucous membranes Eyes PERRL and EOMs intact bilaterally Eyes Narrative: No nystagmus appreciated General Eye ED: Negative for pale conjunctiva Neck supple and no JVD Neck Narrative: No midline tenderness. No reproducible tenderness to palpation. No bruits appreciated. Chest Wall inspection of chest normal and palpation of chest normal Resp normal respiratory effort and clear to auscultation bilaterally Cardio regular rate and regular rhythm GI normal to inspection, nondistended, normoactive bowel sounds and non-tender Extremity normal to inspection General Extremety ED: Negative for edema General Extremity: Negative for edema Neuro oriented x3, CN's II-XII intact bilaterally and no sensory deficits noted Neuro Narrative: Normal coordination, normal [id number]. NIH equals 0 Sensorium / Orientation: alert Motor Exam: strength 5/5 throughout and general weakness Psych mental status grossly normal Skin no rashes or lesions noted and no wounds General Skin Exam: Negative for pallor MDM MDM MDM Narrative Medical decision making narrative: Patient was evaluated for a sensation of dizziness, weakness and confusion. He has not any focal neurologic deficits. She just does not seem to be feeling right. Her blood pressure is elevated. Had recent medication change (taken off of nifedipine) and started on spironolactone. Broad workup including CT of the brain, cardiac workup, TSH, CBC, BMP, magnesium and urinalysis is obtained. As well as CT of the brain and cervical spine. Workup is significant for hyponatremia with a sodium of 126. Her creatinine is 1.22. I do not have any prior labs to compare to however I looked on the patient's MyChart on her phone and it shows that on 09/13/2023 creatinine was 0.91 and her sodium was 135. Patient will be admitted for gentle fluid hydration, blood pressure management and evaluation of her weakness which I am hopeful will improve with correction of her hyponatremia. She does not any focal logic deficits no seizure activity and I do not think requires hypertonic saline at this time. Is agreeable plan of care. Case discussed with my physician, Dr. Casper. History & Record Review Additional record(s) reviewed:: Prior outpatient record Lab Data Attestation: I reviewed the patient's lab results. Labs: Laboratory Results - last 24 hr 01/14/24 01/14/24 01/14/24 13:12 13:12 13:55 WBC Cancelled 6.3 Corrected WBC Cancelled RBC Cancelled 4.73 Hgb Cancelled 14.0 Hct Cancelled 40.7 MCV Cancelled 86.0 MCH Cancelled 29.6 MCHC Cancelled 34.4 RDW Std Deviation Cancelled 39.3 RDW Coeff of Gricel Cancelled 12.6 Plt Count Cancelled 256 MPV Cancelled 9.3 Immature Gran % (Auto) Cancelled 0.300 Neut % (Auto) Cancelled 76.5 H Lymph % (Auto) Cancelled 14.0 L [place] % (Auto) Cancelled 8.8 Eos % (Auto) Cancelled 0.2 Baso % (Auto) Cancelled 0.2 Absolute Neuts (auto) Cancelled 4.8 Absolute Lymphs (auto) Cancelled 0.88 Total Counted Cancelled Neutrophils % (Manual) Cancelled Band Neutrophils % Cancelled Lymphocytes % (Manual) Cancelled Monocytes % (Manual) Cancelled Eosinophils % (Manual) Cancelled Basophils % (Manual) Cancelled Metamyelocytes % Cancelled Myelocytes % Cancelled Promyelocytes % Cancelled Blast Cells % Cancelled Plasma Cell % (Manual) Cancelled Other Cells % Cancelled Nucleated RBC % Cancelled 0 Nucleated RBCs/100 WBC Cancelled Differential Comment Cancelled Diff Path Review Cancelled Hypersegmented Neuts Cancelled Atypical Lymphocytes Cancelled Reactive Lymphocytes Cancelled Smudge Cells Cancelled Toxic Granulation Cancelled Toxic Vacuolation Cancelled Dohle Bodies Cancelled Last Rods Cancelled Platelet Estimate Cancelled Plt Morphology Comment Cancelled RBC Morphology Cancelled Cancelled Polychromasia Cancelled Hypochromasia Cancelled Basophilic Stippling Cancelled Anisocytosis Cancelled Microcytosis Cancelled Macrocytosis Cancelled Spherocytes Cancelled Sickle Cells Cancelled Target Cells Cancelled Tear Drop Cells Cancelled Ovalocytes Cancelled Stomatocytes Cancelled [place]ome-[place] Bodies Cancelled Lamona Cells Cancelled Bite Cells Cancelled Crenated Cell Cancelled Acanthocytes (Spur) Cancelled Rouleaux Cancelled Schistocytes Cancelled Sodium 126 L Potassium 4.4 Chloride 92 L Carbon Dioxide 24.0 Anion Gap 10 BUN 14 Creatinine 1.22 H Estim Creat Clear Calc 34.11 Est GFR (MDRD) Af Amer 55 L Est GFR (MDRD) Non-Af 46 L BUN/Creatinine Ratio 11.5 Glucose 127 H Calcium 9.5 Magnesium 2.1 Troponin I High Sens 13 B-Natriuretic Peptide Cancelled 46.1 TSH 3.82 H Urine Color Urine Clarity Urine pH Ur Specific [place] Urine Protein Urine Glucose (UA) Urine Ketones Urine Occult Blood Urine Nitrite Urine Bilirubin Urine Urobilinogen Ur Leukocyte Esterase Urine RBC Urine WBC Ur Squamous Epith Cells Amorphous Sediment Urine Bacteria Hyaline Casts Urine Mucus 01/14/24 14:04 WBC Corrected WBC RBC Hgb Hct MCV MCH MCHC RDW Std Deviation RDW Coeff of Gricel Plt Count MPV Immature Gran % (Auto) Neut % (Auto) Lymph % (Auto) [place] % (Auto) Eos % (Auto) Baso % (Auto) Absolute Neuts (auto) Absolute Lymphs (auto) Total Counted Neutrophils % (Manual) Band Neutrophils % Lymphocytes % (Manual) Monocytes % (Manual) Eosinophils % (Manual) Basophils % (Manual) Metamyelocytes % Myelocytes % Promyelocytes % Blast Cells % Plasma Cell % (Manual) Other Cells % Nucleated RBC % Nucleated RBCs/100 WBC Differential Comment Diff Path Review Hypersegmented Neuts Atypical Lymphocytes Reactive Lymphocytes Smudge Cells Toxic Granulation Toxic Vacuolation Dohle Bodies Last Rods Platelet Estimate Plt Morphology Comment RBC Morphology Polychromasia Hypochromasia Basophilic Stippling Anisocytosis Microcytosis Macrocytosis Spherocytes Sickle Cells Target Cells Tear Drop Cells Ovalocytes Stomatocytes [place]ome-[place] Bodies Navid Cells Bite Cells Crenated Cell Acanthocytes (Spur) Rouleaux Schistocytes Sodium Potassium Chloride Carbon Dioxide Anion Gap BUN Creatinine Estim Creat Clear Calc Est GFR (MDRD) Af Amer Est GFR (MDRD) Non-Af BUN/Creatinine Ratio Glucose Calcium Magnesium Troponin I High Sens B-Natriuretic Peptide TSH Urine Color Yellow Urine Clarity Clear Urine pH 7.0 Ur Specific [place] 1.015 Urine Protein Negative Urine Glucose (UA) Normal Urine Ketones Negative Urine Occult Blood Negative Urine Nitrite Negative Urine Bilirubin Negative Urine Urobilinogen Normal Ur Leukocyte Esterase 25 H Urine RBC 0-5 SEEN Urine WBC 0-5 SEEN Ur Squamous Epith Cells 0-5 SEEN Amorphous Sediment 1+ Urine Bacteria 1+ Hyaline Casts 0-5 SEEN Urine Mucus 1+ Radiography Chest X-Ray - ED: 2 View, Read by ED Physician, Read by Radiologist and No Acute Disease Diagnostic Testing: Clinical Impression(s) from Imaging Studies Brain CT 01/14/24 13:24 IMPRESSION: Chronic involutional changes of the brain. Electronically Signed: Miller Gonzales MD at 13:50 EDT , Cervical Spine CT 01/14/24 13:24 IMPRESSION: Multilevel degenerative changes, as described above. Electronically Signed: Miller Gonzales MD at 13:53 EDT , Chest X-Ray 01/14/24 13:48 IMPRESSION: Hyperinflation. The lungs are clear. Electronically Signed: Miller Gonzales MD at 13:58 EDT , Rhythm Strip Rhythm Strip: Sinus Rhythm Rate: 72 Ectopy: None EKG Initial EKG: Attestation: I personally reviewed and interpreted this EKG as follows: Interpretation: Sinus Rhythm Comments: Normal sinus rhythm rate of 72 bpm Normal axis Normal intervals Normal ST segments Management Discussion w/another healthcare provider: Hospitalist Discharge Plan Triage Chief Complaint: Weakness ED Provider: Freida Liriano Dx/Rx/DC Orders Clinical Impression: Hyponatremia, Confusion, Weakness generalized, HTN (hypertension) Primary Care Provider: Sanjeev Singh Disposition Disposition: Acute Care Hospital [facility]
[2024-01-14 14:21] LABS: Color, Urine Yellow (Yellow); Glucose, Dipstick Normal (Normal); Ketone-Dipstick Negative (Negative); Leukocyte Esterase-Dipstick 25 /ul (Negative); Nitrite-Dipstick Negative (Negative); Occult Blood-Urine Negative /ul (Negative); Protein-Dipstick Negative (Negative); Specific Gravity, Urine 1.015 (1.002-1.030); Urine Bilirubin Dipstick Negative (Negative); Urine Clarity Clear (Clear); Urine Urobilinogen Normal (Normal)
[2024-01-14 14:32] LABS: Hyaline Cast 0-5 SEEN /lpf (0-5); Mucous, Urine 1+ /hpf (<or=2+)
[2024-01-14 14:34] LABS: Amorphous Sediment 1+; White Blood Cells 0-5 SEEN /hpf (0-5)
[2024-01-14 14:35] LABS: Bacteria 1+ /hpf (None Seen); Squamous Epithelial Cells - UA 0-5 SEEN /hpf (5-10)
[2024-01-14 14:36] LABS: Red Blood Cells-Urine 0-5 SEEN /hpf (0-5)
[2024-01-14] MEDS: 0.9% Normal Saline (1000mL) 1,000 ML 150 ML IV (14:51)
--- NOTE | 2024-01-14 15:25 | PCM.HP.STD ---
HPI - General General Date of Admission: 01/14/24 Date of Service: 01/14/24 Chief Complaint: Generalized weakness/confusion HPI Narrative MAXI RUBIO, is a 73 F who presented to the emergency department at [facility] on 01/14/2024 with generalized weakness and confusion. The patient reports that she has been started on Aldactone about a month ago and her nifedipine was discontinued however recently she started taking a half a tablet of extended release formula at home. Her nifedipine was discontinued due to swelling and Aldactone was used in substitution. This was started by her physician including clinic. She does have multiple allergies to many medications and many classes. 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 She was set to have surgery on her left hip however then developed coronary disease and had of intervention for that. She indicates recently however she has been more off balance and feels generalized weakness and some issues with memory over the last day or 2. Patient states her p.o. intake has been adequate for both food and liquid the only real difference in her overall regimen is the Aldactone. Vital signs on presentation demonstrated temperature of 97.3, heart rate 63, blood pressure initially was 206/70 however repeat was 165/85. Respiratory rate was 15 oxygen saturations were 100% on room air. Her CBC was unremarkable. Her chemistry panel showed hyponatremia with a sodium of 135 with her most recent chemistry panel from [facility] having it sodium of 135 which was done not that long ago. She also had a serum creatinine of 1.22 (baseline is unclear). Serum glucose nonfasting was 127. TSH was mildly elevated at 3.82 and cortisol was 8.90. Her UA appeared somewhat concentrated with a urine specific gravity 1.015 but is not consistent with infection. I have added on urine sodium and osmolarity as well as random urine sodium. Chest x-ray showed hyperinflation but was otherwise unremarkable. [facility] Medical History (Updated 01/14/24 @ 17:27 by Tamara Mendoza) Anxiety Kidney disease GERD (gastroesophageal reflux disease) Former smoker Dyspareunia in female NSTEMI (non-ST elevated myocardial infarction) Hyperlipidemia H/O placement of stent in anterior descending branch of left coronary artery History of CO (myocardial infarction) Mass of left breast Lichen plano-pilaris Differentiation syndrome Abnormal Pap smear of cervix Connective tissue disease, undifferentiated Osteoporosis Rosacea Fibroids Mitral valve prolapse Hypertension Arthritis Basal cell carcinoma Home Medications ?Medication ?Instructions ?Recorded ?Last Taken ?Type calcium citrate 315 mg 1 tab PO DAILY 05/27/20 01/14/24 History calcium-vitamin D3 6.25 mcg (250 unit) tablet (Citracal + Vitamin D Maximum) ezetimibe 10 mg tablet (Zetia) 10 mg PO DAILY 05/29/21 01/14/24 History valsartan 160 mg tablet 160 mg PO BID 07/08/23 01/14/24 History Lactobacillus acidophilus 10 10,000 mmu cells PO DAILY 09/27/23 01/14/24 History billion cell capsule aspirin 81 mg tablet,delayed 81 mg PO DAILY 09/27/23 01/14/24 History release clopidogrel 75 mg tablet 75 mg PO QODAY 09/27/23 01/14/24 History diclofenac sodium 1 % topical gel 4 g topical 4X/DAY PRN JOINT PAIN 09/27/23 Unknown History famotidine 20 mg tablet (Pepcid) 20 mg PO DAILY 09/27/23 01/14/24 History metoprolol succinate 25 mg 25 mg PO DAILY 09/27/23 01/14/24 History tablet,extended release 24 hr psyllium husk 0.4 gram capsule 0.4 g PO DAILY 09/27/23 01/13/24 History valacyclovir 1 gram tablet 1,000 mg PO DAILY PRN cold sores 09/27/23 Unknown History (Valtrex) ammonium lactate 12 % topical cream 1 applic topical PRN PRN dry skin 01/14/24 Unknown History estradiol 10 mcg vaginal tablet 10 mcg vaginal FR 01/14/24 01/14/24 History (Yuvafem) metronidazole 250 mg tablet 250 mg PO DAILY 01/14/24 01/11/24 History multivitamin (Daily Multi-Vitamin 1 tab PO DAILY 01/14/24 01/14/24 History tablet) nifedipine 30 mg tablet,extended 15 mg PO DAILY 01/14/24 01/14/24 History release 24 hr pravastatin 10 mg tablet 10 mg PO DAILY 01/14/24 01/14/24 History spironolactone 25 mg tablet 25 mg PO DAILY 01/14/24 01/14/24 History Allergy/AdvReac Type Severity Reaction Status Date / Time ampicillin Allergy Mild unknown Verified 01/14/24 12:54 cephalexin Allergy Mild unknown Verified 01/14/24 12:54 clarithromycin Allergy Mild unknown Verified 01/14/24 12:54 clindamycin Allergy Mild unknown Verified 01/14/24 12:54 codeine Allergy Mild Unknown Verified 01/14/24 12:54 erythromycin base Allergy Mild unknown Verified 01/14/24 12:54 ibuprofen Allergy Mild unknown Verified 01/14/24 12:54 meperidine Allergy Mild unknown Verified 01/14/24 12:54 naproxen Allergy Mild unknown Verified 01/14/24 12:54 Penicillins Allergy Mild unknown Verified 01/14/24 12:54 sulfamethoxazole Allergy Mild unknown Verified 01/14/24 12:54 sulfanilamide Allergy Mild PT UNSURE Verified 01/14/24 12:54 OF REACTION tetracycline Allergy Mild unknown Verified 01/14/24 12:54 trimethoprim Allergy Mild unknown Verified 01/14/24 12:54 naltrexone Allergy Other Verified 01/14/24 12:54 prochlorperazine (From Allergy Other Verified 01/14/24 12:54 Compazine) amlodipine AdvReac Other Verified 01/14/24 12:54 Benzodiazepines AdvReac Other Verified 01/14/24 12:54 nebivolol (From Bystolic) AdvReac Other Verified 01/14/24 12:54 NSAIDS (Non-Steroidal AdvReac Other Verified 01/14/24 12:54 Anti-Inflamma polyethylene glycol 400 AdvReac Other Verified 01/14/24 12:54 (From Systane (propylene glycol)) propylene glycol (From AdvReac Other Verified 01/14/24 12:54 Systane (propylene glycol)) simvastatin AdvReac Other Verified 01/14/24 12:54 ticagrelor (From Brilinta) AdvReac Other Verified 01/14/24 12:54 Family History Father Alcoholism Throat cancer Mother Thyroid disorder Breast cancer Heart disease Blindness Cataract Glaucoma Macular degeneration Other Abnormal Pap smear of cervix Surgical History History of coronary artery stent placement Hx of appendectomy Breast implant status S/P dilation and curettage S/P hysterectomy S/P foot surgery, left S/P tonsillectomy and adenoidectomy Social History (Updated 01/14/24 @ 19:[address] Radha Casper, DO) Smoking Status: Former smoker alcohol intake: current details: social substance use type: does not use caffeine: Yes what type of physical activity do you participate in: walking seatbelt use: always do you feel safe at home: Yes additional social history: [employer]- Retired Patient is retired ROS Constitutional Constitutional: Reports fatigue, malaise and weakness; Denies anorexia, change in weight, chills, fever(s), night sweats or other Eyes Eyes: Denies blurry vision, change in eye color, change in vision, discharge from eye(s), double vision, erythema, eye pain, loss of vision or other ENT HEENT: Denies abnormal hearing, dysphagia, ear pain, epistaxis, headache(s), hearing loss, nasal congestion, nasal discharge, post nasal drip, sinus pressure, sore throat or other Cardiovascular Cardiovascular: Denies chest pain, claudication, dyspnea on exertion, edema, lightheadedness, orthopnea, palpitations, paroxysmal nocturnal dyspnea, rapid heart rate, syncope or other Respiratory/Chest Respiratory/Chest: Denies cough, dyspnea, excessive phlegm production, hemoptysis, productive cough, shortness of breath at rest, shortness of breath with exertion, wheezing or other Gastrointestinal Gastrointestinal: Denies abdominal pain, coffee ground emesis, constipation, diarrhea, dyspepsia, hematemesis, hematochezia, loose stools, melena, nausea, vomiting or other Genitourinary Genitourinary: Denies burning urination, difficulty urinating, dysuria, hematuria, nocturia, urinary frequency, urinary hesitancy, urinary incontinence, urinary urgency or other Musculoskeletal Musculoskeletal: Reports joint pain, joint stiffness and other Details: Right foot pain ; Denies arthralgias, back pain, joint swelling, myalgias or neck pain Neurologic Neurologic: Reports abnormal gait and confusion; Denies abnormal speech, disequilibrium, dizziness, focal weakness, headache(s), numbness, paresthesias, seizure-like activity, seizures, syncope, tingling, tremor(s) or other Psychiatric Psychiatric: Reports anxiety and depression; Denies homicidal ideation, suicidal ideation or other Endocrine Endocrinology: Denies change in body appearance, cold intolerance, excessive sweating, heat intolerance, polydipsia, polyuria or other Hematologic/Lymphatic Hematologic/Lymphatic: Denies anemia, easy bleeding, easy bruising, lymphadenopathy or other Allergic/Immunologic Allergic/Immunologic: Denies rhinitis, hives, eczemia, asthma or other Vital Signs Vital Signs Vital Signs: 01/14/24 12:54 01/14/24 13:05 01/14/24 13:30 Temperature 97.3 F L Temperature Source Temporal Pulse Rate 63 Respiratory Rate 15 Respiratory Effort Normal Respiratory Pattern Normal Blood Pressure 206/70 H Blood Pressure Mean 115 Pulse Ox 100 98 Oxygen Delivery Method Room Air Room Air 01/14/24 14:53 01/14/24 15:23 Temperature 97.9 F Temperature Source Pulse Rate 61 58 L Respiratory Rate 16 17 Respiratory Effort Respiratory Pattern Blood Pressure 165/85 H 161/88 H Blood Pressure Mean 111 112 Pulse Ox 100 98 Oxygen Delivery Method Room Air Weight Weight: 52.617 kg Body Mass Index (BMI) 17.6 Physical Exam Const alert, oriented x3, no apparent distress, average body habitus and well nourished Constitutional Narrative: Older, white female, sitting up in bed, family at bedside, patient appears comfortable, nontoxic General Appearance: cooperative HEENT normocephalic, head/scalp atraumatic, hearing grossly normal bilaterally and moist oral mucous membranes HEENT Narrative: Mallampati 2, no thrush Eyes PERRL, EOMs intact bilaterally and conjunctivae normal Eyes Narrative: No scleral icterus Neck no lymphadenopathy and supple Neck Narrative: Trachea midline, no thyroid enlargement Resp normal respiratory effort, no retractions, no use of accessory muscles and clear to auscultation bilaterally Auscultation: Negative for rales, rhonchi or wheezes Cardio regular rate, regular rhythm, S1 normal heart sound, S2 normal heart sound, no murmurs, no rub, no gallops and no clicks GI normal to inspection, nondistended, normoactive bowel sounds, soft to palpation and non-tender Extremity no clubbing, cyanosis or edema Extremity Narrative: Pedal pulses are 2+ Skin no rashes or lesions noted, no wounds, skin turgor normal, no jaundice, no petechiae and no mottling Neuro oriented x3, moves all extremities and no focal motor deficits Neuro Narrative: Mild generalized weakness noted proximal greater than distal but no focal deficits present, speech quality is normal however patient seems to have a bit of a difficulty expressing her thoughts in a jointer machine way Speech: speech normal Psych Psych Narrative: Patient appears markedly anxious Mood & Affect: anxious Results Lab / Micro Data 01/14/24 13:55 01/14/24 13:12 Labs: Laboratory Results - last 24 hr 01/14/24 13:12: WBC Cancelled, Corrected WBC Cancelled, RBC Cancelled, Hgb Cancelled, Hct Cancelled, MCV Cancelled, MCH Cancelled, MCHC Cancelled, RDW Std Deviation Cancelled, RDW Coeff of Gricel Cancelled, Plt Count Cancelled, MPV Cancelled, Immature Gran % (Auto) Cancelled, Neut % (Auto) Cancelled, Lymph % (Auto) Cancelled, Ida % (Auto) Cancelled, Eos % (Auto) Cancelled, Baso % (Auto) Cancelled, Absolute Neuts (auto) Cancelled, Absolute Lymphs (auto) Cancelled, Total Counted Cancelled, Neutrophils % (Manual) Cancelled, Band Neutrophils % Cancelled, Lymphocytes % (Manual) Cancelled, Monocytes % (Manual) Cancelled, Eosinophils % (Manual) Cancelled, Basophils % (Manual) Cancelled, Metamyelocytes % Cancelled, Myelocytes % Cancelled, Promyelocytes % Cancelled, Blast Cells % Cancelled, Plasma Cell % (Manual) Cancelled, Other Cells % Cancelled, Nucleated RBC % Cancelled, Nucleated RBCs/100 WBC Cancelled, Differential Comment Cancelled, Diff Path Review Cancelled, Hypersegmented Neuts Cancelled, Atypical Lymphocytes Cancelled, Reactive Lymphocytes Cancelled, Smudge Cells Cancelled, Toxic Granulation Cancelled, Toxic Vacuolation Cancelled, Dohle Bodies Cancelled, Last Rods Cancelled, Platelet Estimate Cancelled, Plt Morphology Comment Cancelled, RBC Morphology Cancelled 01/14/24 13:12: RBC Morphology Cancelled, Polychromasia Cancelled, Hypochromasia Cancelled, Basophilic Stippling Cancelled, Anisocytosis Cancelled, Microcytosis Cancelled, Macrocytosis Cancelled, Spherocytes Cancelled, Sickle Cells Cancelled, Target Cells Cancelled, Tear Drop Cells Cancelled, Ovalocytes Cancelled, Stomatocytes Cancelled, Jacome-Lufkin Bodies Cancelled, [place] Cells Cancelled, Bite Cells Cancelled, Crenated Cell Cancelled, Acanthocytes (Spur) Cancelled, Rouleaux Cancelled, Schistocytes Cancelled, Sodium 126 L, Potassium 4.4, Chloride 92 L, Carbon Dioxide 24.0, Anion Gap 10, BUN 14, Creatinine 1.22 H, Estim Creat Clear Calc 34.11, Est GFR (MDRD) Af Amer 55 L, Est GFR (MDRD) Non-Af 46 L, BUN/Creatinine Ratio 11.5, Glucose 127 H, Calcium 9.5, Magnesium 2.1, Troponin I High Sens 13, B-Natriuretic Peptide Cancelled, TSH 3.82 H 01/14/24 13:55: WBC 6.3, RBC 4.73, Hgb 14.0, Hct 40.7, MCV 86.0, MCH 29.6, MCHC 34.4, RDW Std Deviation 39.3, RDW Coeff of Gricel 12.6, Plt Count 256, MPV 9.3, Immature Gran % (Auto) 0.300, Neut % (Auto) 76.5 H, Lymph % (Auto) 14.0 L, Ida % (Auto) 8.8, Eos % (Auto) 0.2, Baso % (Auto) 0.2, Absolute Neuts (auto) 4.8, Absolute Lymphs (auto) 0.88, Nucleated RBC % 0, B-Natriuretic Peptide 46.1 01/14/24 14:04: Urine Color Yellow, Urine Clarity Clear, Urine pH 7.0, Ur Specific [place] 1.015, Urine Protein Negative, Urine Glucose (UA) Normal, Urine Ketones Negative, Urine Occult Blood Negative, Urine Nitrite Negative, Urine Bilirubin Negative, Urine Urobilinogen Normal, Ur Leukocyte Esterase 25 H, Urine RBC 0-5 SEEN, Urine WBC 0-5 SEEN, Ur Squamous Epith Cells 0-5 SEEN, Amorphous Sediment 1+, Urine Bacteria 1+, Hyaline Casts 0-5 SEEN, Urine Mucus 1+ Imaging Radiology Impression Brain CT 01/14/24 13:24 IMPRESSION: Chronic involutional changes of the brain. Electronically Signed: Miller Gonzales MD at 13:50 EDT , Cervical Spine CT 01/14/24 13:24 IMPRESSION: Multilevel degenerative changes, as described above. Electronically Signed: Miller Gonzales MD at 13:53 EDT , Chest X-Ray 01/14/24 13:48 IMPRESSION: Hyperinflation. The lungs are clear. Electronically Signed: Miller Gonzales MD at 13:58 EDT , Assessment & Plan Assessment/Plan (1) Hyponatremia: (2) Confusion: (3) Weakness generalized: PLAN: Plan Acute hyponatremia -Patient with recent lab at [facility] showing a sodium of 135 -Sodium on admission is 126 -Gentle hydration with 1 L IV fluids and reassess -Check every 6 hours sodium -No new medications except Aldactone -Hold for now -TSH is mildly elevated with no need to check free T4 -Highly suspect euthyroid sick based on minimal elevation -Cortisol level is normal -Urine and serum osmolality pending -Uric acid is pending -urine sodium is pending Confusion/generalized weakness -Patient complains of confusion however only seems to be minimal on exam -Mild generalized weakness noted but no focal deficits -Likely related to the above -PT/OT consultation pending CAD/essential HTN/HPL -PCI with JESUS to LAD--> follows at [facility] -Continue home aspirin -Continue home Plavix -Continue home Zetia and statin -Continue home metoprolol -Continue home valsartan 160 twice daily -Hold Aldactone with hyponatremia on presentation -Will continue nifedipine however patient was cutting her extended release tablets at home so we will give a lower dose due to swelling issues -Monitor blood pressure may need additional medications Mixed connective tissue disease-undifferentiated -Ongoing outpatient follow-up GERD -Continue home famotidine DVT prophylaxis -Subcu Lovenox daily CODE STATUS -Full code as verified at the time of admission Charges/Coding Visit Charges Inpatient E&M: 43907 Init Hosp L2
[2024-01-14 15:29] LABS: Reflex Troponin-HS? (from REC) Y
[2024-01-14] MEDS: Acetaminophen 325 MG Tablet 650 MG PO (15:30)
[2024-01-14] MEDS: NIFEdipine 10 MG Capsule PO (15:50)
[2024-01-14 16:22] LABS: Troponin-I HS 17 pg/mL (3.0-54.0)
[2024-01-14] MEDS: Lactated Ringers 1,000 ML 100 ML IV (17:51)
[2024-01-14 19:27] LABS: Uric Acid 3.4 mg/dL (2.6-6.0)
[2024-01-14 19:34] LABS: Osmolality, Serum 270 mOsm/KG (280-301)
[2024-01-14 19:35] LABS: Osmolality, Urine 255 mOsm/KG
[2024-01-14 19:36] LABS: Urine Sodium 84 mmol/L (Not Establ.)
[2024-01-15] MEDS: Lactated Ringers 1,000 ML 100 ML IV (03:42)
[2024-01-15 04:04] VITALS: BP 134/66; PULSE 63; RESP 16; TEMP 36.6; O2SAT 100
[2024-01-15 05:30] VITALS: BMI 18.8
[2024-01-15 07:11] VITALS: O2SAT 96
[2024-01-15 07:18] LABS: Absolute Lymphocyte Count 1.31 X10^3/uL (0.83-4.51); Basophil# 0.02 X10^3/uL; Basophil% 0.5 % (0-1); Eosinophil# 0.06 X10^3/uL; Eosinophils% 1.5 % (0-5); Hematocrit 36.5 % (37-47); Hemoglobin 12.4 g/dL (12.0-15.0); Lymphocyte # 1.31 X10^3/ul (0.83-4.51); Lymphocyte % 33.7 % (19-41); Mean Corpuscular Hgb 29.8 pg (27.0-32.0); Mean Corpuscular Volume 87.7 fL (81-99); Mean Platelet Vol. 9.1 fl (6.2-12.0); Monocyte# 0.54 X10^3/uL; Monocyte% 13.9 % (0-10); NRBC Flagged by Analyzer 0 % (0-5); Neutrophil # 1.95 X10^3/uL (2.7-7.7); Neutrophil % 50.1 % (47-70); Platelet Count 246 K/mm3 (150-450); RBC Distribution Width CV 12.9 % (11.6-14.6); RBC Distribution Width SD 41.2 fl (35.1-43.9); Red Blood Count 4.16 M/mm3 (4.2-5.4); White Blood Count 3.9 K/mm3 (4.4-11.0)
[2024-01-15 07:41] LABS: Anion Gap 6 (5-15); BUN 10 mg/dL (7-18); BUN/Creat Ratio 9.4 RATIO (10-20); Calcium,Total 8.3 mg/dL (8.5-10.1); Chloride 96 mmol/L (98-107); Creatinine, Serum 1.06 mg/dL (0.55-1.02); EST Glomerular Filtration Rate 54 mL/min (>60); Est Glom Filt Rate - Afr Amer 65 mL/min (>60); Estimated Creatinine Clearance 40.68 ml/min; Glucose 85 mg/dL (74-106); Magnesium 1.9 mg/dL (1.6-2.6); Phosphorus 3.2 mg/dL (2.5-4.9); Potassium 4.5 mmol/L (3.5-5.1); Sodium Level 128 mmol/L (136-145)
[2024-01-15 08:13] VITALS: PULSE 61
[2024-01-15] MEDS: Aspirin E.C. 81 MG Tablet PO (08:13)
[2024-01-15] MEDS: Calcium Carb/Vitamin D 1 TABLET Tablet PO (08:13)
[2024-01-15] MEDS: Metoprolol(XL)Succ 25 MG Tablet PO (08:13)
[2024-01-15] MEDS: Famotidine 20 MG Tablet PO (08:13)
[2024-01-15] MEDS: Lactobacillis Acidophilus 1 CAP PO (08:13)
[2024-01-15] MEDS: Enoxaparin 40 MG/0.4 ML Syringe SC (08:14)
[2024-01-15] MEDS: NIFEdipine 10 MG Capsule PO (08:14)
[2024-01-15] MEDS: Ezetimibe 10 MG Tablet PO (08:14)
[2024-01-15 10:19] VITALS: BP 138/58; PULSE 60; RESP 18; TEMP 36.8; O2SAT 98
[2024-01-15 10:59] VITALS: BP 162/64; PULSE 63; RESP 18; TEMP 36.9; O2SAT 100
[2024-01-15] MEDS: Psyllium 1 PACKET PO (11:20)
[2024-01-15] MEDS: Acetaminophen 325 MG Tablet 650 MG PO (11:20)
[2024-01-15 12:30] LABS: Anion Gap 7 (5-15); BUN 12 mg/dL (7-18); BUN/Creat Ratio 12.7 RATIO (10-20); Calcium,Total 8.9 mg/dL (8.5-10.1); Chloride 95 mmol/L (98-107); Creatinine, Serum 0.95 mg/dL (0.55-1.02); EST Glomerular Filtration Rate 61 mL/min (>60); Est Glom Filt Rate - Afr Amer 74 mL/min (>60); Glucose 76 mg/dL (74-106); Sodium Level 128 mmol/L (136-145)
--- NOTE | 2024-01-15 13:09 | CASEMGMT ---
ROSANA CM into pt room, hospitalist present. Discussed with pt how she feels her therapy session went. Pt states she felt whoozy with therapy but she typically uses the treadmill and not an AD. Pt does have a cane and walker at home should he need it. Pt denies any need for therapy at home or outpt. Pt also denies need for a nurse for medication education, monitoring. Pt is aware that should she get home and feel she needs services, she can call her PCP. Plan for pt to dc today. in room as well who can assist pt at home.
--- NOTE | 2024-01-15 13:37 | DCINST_ITS ---
Discharge Instructions Diet Discharge Diet: No restrictions Activity Discharge Activity: Return to Normal Activity Weight Bearing Status: Full weight bearing Follow Up Care Test Results: Test results from this visit will be discussed in further detail at your follow- up appointment, if applicable. Discharge Plan Admission Admit Date/Time: 01/14/24 16:31 Primary Reason for Your Visit: hyponatremia Attending Provider: Mk Wills Primary Care Provider: Sanjeev Singh Consulting Providers: Radha Casper Discharge Orders/Prescriptions Prescriptions: New doxazosin [Cardura] 2 mg tablet 2 mg PO DAILY Qty: 60 0RF Rx Instructions: start with the first dose(2mg) at bedtime, then start with 2mg daily the following morning. May increase to 4mg daily if needed after 5 days if top blood pressure number above 165 Continued valsartan 160 mg tablet 160 mg PO BID calcium citrate-vitamin D3 [Citracal + D Maximum] 315 mg-6.25 mcg (250 unit) tablet 1 tab PO DAILY ezetimibe [Zetia] 10 mg tablet 10 mg PO DAILY clopidogrel 75 mg tablet 75 mg PO QODAY metoprolol succinate 25 mg tablet extended release 24 hr 25 mg PO DAILY aspirin 81 mg tablet,delayed release (DR/EC) 81 mg PO DAILY famotidine [Pepcid] 20 mg tablet 20 mg PO DAILY diclofenac sodium 1 % gel 4 g topical 4X/DAY PRN (Reason: JOINT PAIN) Rx Instructions: apply to single knee, ankle, foot; for foot includes sole/toes/top of foot valacyclovir [Valtrex] 1 gram tablet 1,000 mg PO DAILY PRN (Reason: cold sores) Lactobacillus acidophilus 10 billion cell capsule 10,000 mmu cells PO DAILY psyllium husk 0.4 gram capsule 0.4 g PO DAILY estradiol [Yuvafem] 10 mcg tablet 10 mcg vaginal FR Patient Comments: PT STATES SHE DOESNT ALWAYS TAKE ON FRIDAYS, BETWEEN 7-10 DAYS multivitamin [Daily Multi-Vitamin] Tablet 1 tab PO DAILY ammonium lactate 12 % cream 1 applic topical PRN PRN (Reason: dry skin) pravastatin 10 mg tablet 10 mg PO DAILY Discontinued metronidazole 250 mg tablet 250 mg PO DAILY Patient Comments: pt stopped taking on the spironolactone 25 mg tablet 25 mg PO DAILY Patient Comments: PT TITRATED UP TO A FULL TAB ON 01/03/24 nifedipine 30 mg tablet extended release 24hr 15 mg PO DAILY Patient Comments: PT TAKES ONE HALF TABLET OF THE 30MG TABLETS. Referrals / Follow Up: Sanjeev Singh MD [Primary Care Provider] - See Referral Note (in 1-2 weeks, get sodium rechecked) Disposition Disposition (needs filled in before D/C Order can be placed): Home, Self Care
--- NOTE | 2024-01-15 13:47 | DS.PCM_ITS ---
Providers Date of Admission: 01/14/24 Date of Discharge: 01/15/24 Primary Care Physician: Dr. Sanjeev Singh MD Reason For Visit: HYPONATREMIA, WEAKNESS Diagnosis Discharge Diagnosis (1) Hyponatremia: Status: Acute Code(s): E87.1 - Hypo-osmolality and hyponatremia (2) Confusion: Status: Acute Code(s): R41.0 - Disorientation, unspecified (3) Weakness generalized: Status: Acute Code(s): R53.1 - Weakness Plan 1. Hyponatremia-felt to be secondary to diuretic usage #2 generalized weakness secondary to #1 #3 essential hypertension #4 coronary artery disease Medications at Discharge Home Medications calcium citrate 315 mg calcium-vitamin D3 6.25 mcg (250 unit) tablet (Citracal + Vitamin D Maximum) 1 tab PO DAILY 05/27/20 ezetimibe 10 mg tablet (Zetia) 10 mg PO DAILY 05/29/21 valsartan 160 mg tablet 160 mg PO BID 07/08/23 Lactobacillus acidophilus 10 billion cell capsule 10,000 mmu cells PO DAILY 09/27/23 aspirin 81 mg tablet,delayed release 81 mg PO DAILY 09/27/23 clopidogrel 75 mg tablet 75 mg PO QODAY 09/27/23 diclofenac sodium 1 % topical gel 4 g topical 4X/DAY PRN JOINT PAIN 09/27/23 famotidine 20 mg tablet (Pepcid) 20 mg PO DAILY 09/27/23 metoprolol succinate 25 mg tablet,extended release 24 hr 25 mg PO DAILY 09/27/23 psyllium husk 0.4 gram capsule 0.4 g PO DAILY 09/27/23 valacyclovir 1 gram tablet (Valtrex) 1,000 mg PO DAILY PRN cold sores 09/27/23 ammonium lactate 12 % topical cream 1 applic topical PRN PRN dry skin 01/14/24 estradiol 10 mcg vaginal tablet (Yuvafem) 10 mcg vaginal FR 01/14/24 multivitamin (Daily Multi-Vitamin tablet) 1 tab PO DAILY 01/14/24 pravastatin 10 mg tablet 10 mg PO DAILY 01/14/24 doxazosin 2 mg tablet (Cardura) 2 mg PO DAILY #60 tabs 01/15/24 Hospital Course Operations None Procedures None Summary of Care Provided Minutes Spent on Discharge: 31 Hospital Course: This 73-year-old white female was seen in the emergency room at [facility] with chief complaint of weakness, mild confusion, and pain on the right side of her neck x 24 hours. Patient had a previous history of coronary artery disease. Workup in the emergency room included a CBC which was abnormal for a white blood cell count of 3.9, patient's chemistry panel was remarkable for sodium of 126, creatinine was elevated at 1.22. Patient was placed in observation status on MedSurg 3 for hyponatremia, this was felt to be secondary to her usage of Aldactone at home, her Aldactone was held and the patient was placed on a small dose of Procardia. Follow-up serum sodium was 128, patient's weakness improved and there was no evidence of confusion during her hospitalization. On 01/15/2024, patient was seen and examined: On examination she appeared in good health and spirits, she does not appear to be in any distress. Vital signs as documented. Skin warm and dry and without overt rashes. Neck without JVD, thyroid appears normal, trachea is midline, neck is supple. Lungs clear, normal air movement was noted. Heart exam notable for regular rhythm, normal sounds and absence of murmurs, rubs or gallops. Abdomen unremarkable and without evidence of organomegaly, masses, or abdominal aortic enlargement, bowel sounds are present in all 4 quadrants, no abdominal tenderness was noted. Extremities nonedematous, no cyanosis was noted, no clubbing was noted. Neuro: Cranial nerves II through XII are grossly intact, no focal motor deficits were noted, sensation to light touch and pinprick is intact, motor exam 5/5 throughout. Psych: Patient is alert and oriented x3, she does not appear anxious or depressed, she does not appear agitated. On 01/15/2024, I had a long discussion with the patient and her about her blood pressure medications, she had many allergies to previous blood pressure medications and I recommended that we try Cardura as an outpatient as a substitution for her Procardia and Aldactone. Patient agreed. On 01/15/2024, patient appeared to be stable for discharge home Weight / BMI Weight Weight: 54.522 kg Body Mass Index (BMI) 18.8 ABG / Lab / Microbiology Data 01/15/24 06:47 01/15/24 11:50 Laboratory: Laboratory Results - last 24 hr 01/14/24 13:12: Sodium 126 L, Potassium 4.4, Chloride 92 L, Carbon Dioxide 24.0, Anion Gap 10, BUN 14, Creatinine 1.22 H, Estim Creat Clear Calc 34.11, Est GFR (MDRD) Af Amer 55 L, Est GFR (MDRD) Non-Af 46 L, BUN/Creatinine Ratio 11.5, G lucose 127 H, Uric Acid 3.4, Calcium 9.5, Magnesium 2.1, Troponin I High Sens 13, TSH 3.82 H 01/14/24 13:55: WBC 6.3, RBC 4.73, Hgb 14.0, Hct 40.7, MCV 86.0, MCH 29.6, MCHC 34.4, RDW Std Deviation 39.3, RDW Coeff of Gricel 12.6, Plt Count 256, MPV 9.3, Immature Gran % (Auto) 0.300, Neut % (Auto) 76.5 H, Lymph % (Auto) 14.0 L, [place] % (Auto) 8.8, Eos % (Auto) 0.2, Baso % (Auto) 0.2, Absolute Neuts (auto) 4.8, Absolute Lymphs (auto) 0.88, Nucleated RBC % 0, B-Natriuretic Peptide 46.1 01/14/24 14:04: Urine Color Yellow, Urine Clarity Clear, Urine pH 7.0, Ur Specific [place] 1.015, Urine Protein Negative, Urine Glucose (UA) Normal, Urine Ketones Negative, Urine Occult Blood Negative, Urine Nitrite Negative, Urine Bilirubin Negative, Urine Urobilinogen Normal, Ur Leukocyte Esterase 25 H, Urine RBC 0-5 SEEN, Urine WBC 0-5 SEEN, Ur Squamous Epith Cells 0-5 SEEN, Amorphous Sediment 1+, Urine Bacteria 1+, Hyaline Casts 0-5 SEEN, Urine Mucus 1+ 01/14/24 15:56: Troponin I High Sens 17 01/14/24 16:50: Serum Osmolality 270 L, Cortisol 8.90 01/14/24 17:55: Urine Osmolality 255, Ur Random Sodium 84 01/15/24 06:47: WBC 3.9 L, RBC 4.16 L, Hgb 12.4, Hct 36.5 L, MCV 87.7, MCH 29.8, MCHC 34.0, RDW Std Deviation 41.2, RDW Coeff of Gricel 12.9, Plt Count 246, MPV 9.1, Immature Gran % (Auto) 0.300, Neut % (Auto) 50.1, Lymph % (Auto) 33.7, [place] % (Auto) 13.9 H, Eos % (Auto) 1.5, Baso % (Auto) 0.5, Absolute Neuts (auto) 2.0, Absolute Lymphs (auto) 1.31, Nucleated RBC % 0, Sodium 128 L, Potassium 4.5, C hloride 96 L, Carbon Dioxide 26.0, Anion Gap 6, BUN 10, Creatinine 1.06 H, Estim Creat Clear Calc 40.68, Est GFR (MDRD) Af Amer 65, Est GFR (MDRD) Non-Af 54 L, B UN/Creatinine Ratio 9.4 L, Glucose 85, Calcium 8.3 L, Phosphorus 3.2, Magnesium 1.9 01/15/24 11:50: Sodium 128 L, Potassium 4.0, Chloride 95 L, Carbon Dioxide 26.0, Anion Gap 7, BUN 12, Creatinine 0.95, Estim Creat Clear Calc 45.40, Est GFR (MDRD) Af Amer 74, Est GFR (MDRD) Non-Af 61, BUN/Creatinine Ratio 12.7, Glucose 76, Calcium 8.9 Microbiology: Microbiology 01/14/24 14:04 Urine, Clean Catch Urine Culture - Preliminary Culture exhibits no growth. Radiography Diagnostic Testing: Radiology Impression Brain CT 01/14/24 13:24 IMPRESSION: Chronic involutional changes of the brain. Electronically Signed: Miller Gonzales MD at 13:50 EDT , Cervical Spine CT 01/14/24 13:24 IMPRESSION: Multilevel degenerative changes, as described above. Electronically Signed: Miller Gonzales MD at 13:53 EDT , Chest X-Ray 01/14/24 13:48 IMPRESSION: Hyperinflation. The lungs are clear. Electronically Signed: Miller Gonzales MD at 13:58 EDT , D/C Instructions Discharge Diet: No restrictions Weight Bearing Status: Full weight bearing Meaningful Use Info Meaningful Use Meaningful Use Diagnoses (Choose all that apply): None applicable Ischemic Stroke Statin Dosing Therapy Reference: STATIN DOSE THERAPY REFERENCE: * Patients > 75 years receive moderate or high dose statin therapy. * Patients 75 years or YOUNGER should receive HIGH intensity statin dose unless contraindicated. You will be required to document reason for non-treatment if statin daily dose does not meet guidelines. HIGH DOSE STATIN THERAPY DAILY Atorvastatin > than or = to 40 mg Rosuvastatin > than or = to 20 mg Amlodipine + Atorvastatin > than or = to 2.5/40 mg Ezetimibe + Simvastatin 10/80 mg Simvastatin 80mg Discharge Plan Admission Admit Date/Time: 01/14/24 16:31 Primary Reason for Your Visit: hyponatremia Attending Provider: Mk Wills Primary Care Provider: Sanjeev Singh Consulting Providers: Radha Casper Discharge Orders/Prescriptions Prescriptions: New doxazosin [Cardura] 2 mg tablet 2 mg PO DAILY Qty: 60 0RF Rx Instructions: start with the first dose(2mg) at bedtime, then start with 2mg daily the following morning. May increase to 4mg daily if needed after 5 days if top blood pressure number above 165 Continued valsartan 160 mg tablet 160 mg PO BID calcium citrate-vitamin D3 [Citracal + D Maximum] 315 mg-6.25 mcg (250 unit) tablet 1 tab PO DAILY ezetimibe [Zetia] 10 mg tablet 10 mg PO DAILY clopidogrel 75 mg tablet 75 mg PO QODAY metoprolol succinate 25 mg tablet extended release 24 hr 25 mg PO DAILY aspirin 81 mg tablet,delayed release (DR/EC) 81 mg PO DAILY famotidine [Pepcid] 20 mg tablet 20 mg PO DAILY diclofenac sodium 1 % gel 4 g topical 4X/DAY PRN (Reason: JOINT PAIN) Rx Instructions: apply to single knee, ankle, foot; for foot includes sole/toes/top of foot valacyclovir [Valtrex] 1 gram tablet 1,000 mg PO DAILY PRN (Reason: cold sores) Lactobacillus acidophilus 10 billion cell capsule 10,000 mmu cells PO DAILY psyllium husk 0.4 gram capsule 0.4 g PO DAILY estradiol [Yuvafem] 10 mcg tablet 10 mcg vaginal FR Patient Comments: PT STATES SHE DOESNT ALWAYS TAKE ON FRIDAYS, BETWEEN 7-10 DAYS multivitamin [Daily Multi-Vitamin] Tablet 1 tab PO DAILY ammonium lactate 12 % cream 1 applic topical PRN PRN (Reason: dry skin) pravastatin 10 mg tablet 10 mg PO DAILY Discontinued metronidazole 250 mg tablet 250 mg PO DAILY Patient Comments: pt stopped taking on the spironolactone 25 mg tablet 25 mg PO DAILY Patient Comments: PT TITRATED UP TO A FULL TAB ON 01/03/24 nifedipine 30 mg tablet extended release 24hr 15 mg PO DAILY Patient Comments: PT TAKES ONE HALF TABLET OF THE 30MG TABLETS. Referrals / Follow Up: Sanjeev Singh MD [Primary Care Provider] - See Referral Note (in 1-2 weeks, get sodium rechecked) Disposition Disposition (needs filled in before D/C Order can be placed): Home, Self Care Charges/Coding Visit Charges Inpatient E&M: 47670 Disch Hosp >30min
[2024-01-15 14:17] VITALS: BP 127/69; PULSE 59; RESP 18; TEMP 37; O2SAT 100
== END 2024-01-15 14:44 | disposition home or self-care (01) ==
LOC: ED 15:45 → MS3 16:11
PROVIDERS: Admitting Provider Internal Medicine; Emergency Provider Emergency Medicine; PCP Internal Medicine; Visit Provider Internal Medicine
DX: E87.1 Hypo-osmolality and hyponatremia (principal); Z87.891 Personal history of nicotine dependence; R41.0 Disorientation, unspecified; I10 Essential (primary) hypertension; E78.5 Hyperlipidemia, unspecified; I25.10 Atherosclerotic heart disease of native coronary artery without angina pectoris; Z79.02 Long term (current) use of antithrombotics/antiplatelets; Z79.82 Long term (current) use of aspirin; R20.0 Anesthesia of skin; R53.1 Weakness; I25.2 Old myocardial infarction; R06.02 Shortness of breath; Z79.899 Other long term (current) drug therapy; M35.1 Other overlap syndromes; K21.9 Gastro-esophageal reflux disease without esophagitis
CPT/HCPCS: 36415; 70450; 71046; 72125; 80048; 81001; 82533; 83735; 83880; 83930; 83935; 84100; 84300; 84443; 84484; 84550; 85025; 87086; 93005; 94668; 96360; 96361; 96372; 97162; 97165; 99221; 99284; J7030; J7120; A4216; G0378

== ENCOUNTER → 2024-07-27 05:00 | Outpatient (REF) | payer MEDICARE, BC, SELFPAY ==
[2023-08-18 10:13] VITALS: BMI 17.5
[2024-07-27 08:34] LABS: Absolute Lymphocyte Count 1.92 X10^3/uL (0.83-4.51); Absolute Neutrophil Count 4.2 X10^3/uL (2.0-7.7); Basophil# 0.04 X10^3/uL; Basophil% 0.6 % (0-1); Eosinophil# 0.22 X10^3/uL; Hemoglobin 8.6 g/dL (12.0-15.0); Lymphocyte # 1.92 X10^3/ul (0.83-4.51); Lymphocyte % 26.5 % (19-41); Mean Corp Hgb Conc 31.9 g/dL (32-36); Mean Corpuscular Volume 94.1 fL (81-99); Mean Platelet Vol. 9.1 fl (6.2-12.0); Monocyte# 0.75 X10^3/uL; Monocyte% 10.3 % (0-10); NRBC Flagged by Analyzer 0 % (0-5); Neutrophil # 4.22 X10^3/uL (2.7-7.7); Neutrophil % 58.2 % (47-70); Platelet Count 520 K/mm3 (150-450); RBC Distribution Width CV 15.3 % (11.6-14.6); RBC Distribution Width SD 52.7 fl (35.1-43.9); Red Blood Count 2.87 M/mm3 (4.2-5.4); White Blood Count 7.3 K/mm3 (4.4-11.0)
[2024-07-27 08:54] LABS: Vitamin B12 1098 pg/mL (211-911); Vitamin D,25 Hydroxy 50.9 ng/mL
[2024-07-27 08:56] LABS: ALB/GLOB Ratio 0.6 RATIO (0.9-2.4); AST(SGOT) 26 U/L (15-37); Alanine Aminotransfer ALT/SGPT 43 U/L (13-56); Albumin, Serum 2.4 g/dL (3.2-5.0); Alkaline Phosphatase 478 U/L (45-117); Anion Gap 4 (5-15); BUN 9 mg/dL (7-18); BUN/Creat Ratio 10.6 RATIO (10-20); Calcium,Total 9.3 mg/dL (8.5-10.1); Chloride 104 mmol/L (98-107); Cholesterol 233 mg/dL (200); Creatinine, Serum 0.85 mg/dL (0.55-1.02); EST Glomerular Filtration Rate 70 mL/min (>60); Est Glom Filt Rate - Afr Amer 84 mL/min (>60); Glucose 86 mg/dL (74-106); High Density Lipoprotein 30 mg/dL; Magnesium 2.3 mg/dL (1.6-2.6); Potassium 4.6 mmol/L (3.5-5.1); Protein, Total 6.4 g/dL (6.4-8.2); Sodium Level 137 mmol/L (136-145); Triglycerides 130 mg/dL; Very Low Density Lipoprotein 26 mg/dL (5-40)
== END ==
LOC: OLS.SW 05:00
PROVIDERS: PCP Internal Medicine; Visit Provider Internal Medicine
DX: C25.9 Malignant neoplasm of pancreas, unspecified (principal); R17 Unspecified jaundice
CPT/HCPCS: 36415; 80053; 80061; 82306; 82607; 83735; 84443; 85025

== ENCOUNTER 2024-07-28 09:38 | Outpatient (CLI) | payer MEDICARE, BC, SELFPAY ==
[2023-08-18 10:13] VITALS: BMI 17.5
[2024-07-28 10:05] VITALS: BP 130/75; PULSE 80; RESP 16; TEMP 36.2; O2SAT 98; BMI 16.2
[2024-07-28] MEDS: Ertapenem Sod 1 GM in 0.9% Normal Saline (50mL MB+) 50 ML IV (10:53)
[2024-07-28 12:06] VITALS: BP 129/75; PULSE 69; RESP 16; TEMP 36.5; O2SAT 100
== END 2024-07-28 23:59 | disposition home or self-care (01) ==
PROVIDERS: PCP Internal Medicine; Referring Provider Internal Medicine; Visit Provider Internal Medicine
DX: C25.9 Malignant neoplasm of pancreas, unspecified (principal); R78.81 Bacteremia
CPT/HCPCS: 96365; A4216

== ENCOUNTER 2024-07-29 09:15 | Outpatient (CLI) | payer MEDICARE, BC, SELFPAY ==
[2023-08-18 10:13] VITALS: BMI 17.5
[2024-07-29] MEDS: Ertapenem Sod 1 GM in 0.9% Normal Saline (50mL MB+) 50 ML IV (09:45)
[2024-07-29 09:50] VITALS: BP 133/69; PULSE 72; RESP 16; O2SAT 99; BMI 16.2
[2024-07-29 10:54] VITALS: BP 135/51; PULSE 89; RESP 14; TEMP 36.7; O2SAT 100
== END 2024-07-29 23:59 | disposition home or self-care (01) ==
PROVIDERS: PCP Internal Medicine; Referring Provider Internal Medicine; Visit Provider Internal Medicine
DX: C25.9 Malignant neoplasm of pancreas, unspecified (principal); R78.81 Bacteremia
CPT/HCPCS: 96365; A4216

== ENCOUNTER 2024-07-30 09:19 | Outpatient (CLI) | payer MEDICARE, BC, SELFPAY ==
[2023-08-18 10:13] VITALS: BMI 17.5
[2024-07-30] MEDS: 0.9% Saline Lock 10 ML Syringe IV ×2 (09:40→10:50)
[2024-07-30] MEDS: 0.9% Normal Saline (100mL Bag) 100 ML 15 ML IV (09:40)
[2024-07-30] MEDS: Ertapenem Sod 1 GM in 0.9% Normal Saline (50mL MB+) 50 ML IV (09:41)
== END 2024-07-30 10:50 | disposition home or self-care (01) ==
LOC: MEDOUTP 09:19 → PCU 09:20
PROVIDERS: PCP Internal Medicine; Referring Provider Internal Medicine; Visit Provider Internal Medicine
DX: C25.9 Malignant neoplasm of pancreas, unspecified (principal); R78.81 Bacteremia
CPT/HCPCS: 96365; A4216

== ENCOUNTER 2024-07-31 10:16 | Outpatient (CLI) | payer MEDICARE, BC, SELFPAY ==
[2023-08-18 10:13] VITALS: BMI 17.5
[2024-07-31] MEDS: Ertapenem Sod 1 GM in 0.9% Normal Saline (50mL MB+) 50 ML IV (10:29)
[2024-07-31 10:30] VITALS: BP 148/55; PULSE 71; RESP 16; TEMP 36.4; O2SAT 98
[2024-07-31 11:30] VITALS: BP 141/59; PULSE 69; RESP 16; TEMP 36.4; O2SAT 100
== END 2024-07-31 23:59 | disposition home or self-care (01) ==
LOC: MEDOUTP 10:16
PROVIDERS: PCP Internal Medicine; Referring Provider Internal Medicine; Visit Provider Internal Medicine
DX: C25.9 Malignant neoplasm of pancreas, unspecified (principal); R78.81 Bacteremia
CPT/HCPCS: 96365; A4216

== ENCOUNTER 2024-08-01 10:05 | Outpatient (CLI) | payer MEDICARE, BC, SELFPAY ==
[2023-08-18 10:13] VITALS: BMI 17.5
[2024-08-01] MEDS: 0.9% Normal Saline (100mL Bag) 100 ML 15 ML IV (10:30)
[2024-08-01] MEDS: 0.9% NaCl Peripheral Flush Adult/Peds IV ×3 (10:30→11:31)
[2024-08-01] MEDS: Ertapenem Sod 1 GM in 0.9% Normal Saline (50mL MB+) 50 ML IV (10:32)
[2024-08-01 10:33] VITALS: BP 139/58; PULSE 72; RESP 16; TEMP 36.8; O2SAT 100
[2024-08-01 10:34] LABS: Absolute Neutrophil Count 4.6 X10^3/uL (2.0-7.7); Basophil# 0.03 X10^3/uL; Basophil% 0.5 % (0-1); Eosinophil# 0.09 X10^3/uL; Eosinophils% 1.4 % (0-5); Hematocrit 25.8 % (37-47); Hemoglobin 8.1 g/dL (12.0-15.0); Lymphocyte % 17.6 % (19-41); Mean Corp Hgb Conc 31.4 g/dL (32-36); Mean Corpuscular Hgb 28.9 pg (27.0-32.0); Mean Corpuscular Volume 92.1 fL (81-99); Mean Platelet Vol. 8.6 fl (6.2-12.0); Monocyte# 0.38 X10^3/uL; Monocyte% 6.1 % (0-10); NRBC Flagged by Analyzer 0 % (0-5); Neutrophil # 4.64 X10^3/uL (2.7-7.7); Neutrophil % 74.1 % (47-70); Platelet Count 444 K/mm3 (150-450); RBC Distribution Width CV 14.5 % (11.6-14.6); RBC Distribution Width SD 49.6 fl (35.1-43.9); White Blood Count 6.3 K/mm3 (4.4-11.0)
[2024-08-01 11:53] VITALS: BP 144/58; PULSE 66; RESP 16; TEMP 36.8; O2SAT 98
[2024-08-01 18:31] LABS: Xtra CC BBK (Onc ONLY) EXTRA TUBE
== END 2024-08-01 23:59 | disposition home or self-care (01) ==
LOC: MEDOUTP 10:05
PROVIDERS: PCP Internal Medicine; Referring Provider Internal Medicine; Visit Provider Internal Medicine
DX: C25.9 Malignant neoplasm of pancreas, unspecified (principal); D64.9 Anemia, unspecified; R78.81 Bacteremia
CPT/HCPCS: 96365; 36592; 85025; A4216

== ENCOUNTER 2024-08-02 09:27 | Outpatient (CLI) | payer MEDICARE, BC, SELFPAY ==
[2023-08-18 10:13] VITALS: BMI 17.5
[2024-08-02 09:40] VITALS: BP 138/67; PULSE 75; RESP 16; TEMP 36.7; O2SAT 98; BMI 16.2
[2024-08-02] MEDS: 0.9% NaCl Peripheral Flush Adult/Peds IV ×2 (09:42→10:58)
[2024-08-02] MEDS: Ertapenem Sod 1 GM in 0.9% Normal Saline (50mL MB+) 50 ML IV (09:53)
[2024-08-02 10:56] VITALS: BP 129/55; PULSE 66; RESP 16; TEMP 37.1; O2SAT 100
== END 2024-08-02 23:59 | disposition home or self-care (01) ==
LOC: MEDOUTP 09:27
PROVIDERS: PCP Internal Medicine; Referring Provider Internal Medicine; Visit Provider Internal Medicine
DX: C25.9 Malignant neoplasm of pancreas, unspecified (principal); R78.81 Bacteremia
CPT/HCPCS: 96365; A4216

== ENCOUNTER 2024-08-03 10:02 | Outpatient (CLI) | payer MEDICARE, BC, SELFPAY ==
[2023-08-18 10:13] VITALS: BMI 17.5
[2024-08-03] MEDS: 0.9% NaCl Peripheral Flush Adult/Peds IV ×2 (10:12→11:28)
[2024-08-03] MEDS: 0.9% Normal Saline (100mL Bag) 100 ML 15 ML IV (10:12)
[2024-08-03 10:15] VITALS: BP 130/64; PULSE 83; RESP 16; TEMP 36.7; O2SAT 100
[2024-08-03] MEDS: Ertapenem Sod 1 GM in 0.9% Normal Saline (50mL MB+) 50 ML IV (10:27)
[2024-08-03 11:30] VITALS: BP 136/67; PULSE 80; RESP 16
== END 2024-08-03 23:59 | disposition home or self-care (01) ==
LOC: MEDOUTP 10:02
PROVIDERS: PCP Internal Medicine; Referring Provider Internal Medicine; Visit Provider Internal Medicine
DX: C25.9 Malignant neoplasm of pancreas, unspecified (principal); R78.81 Bacteremia
CPT/HCPCS: 96365; A4216

== ENCOUNTER 2024-08-04 09:36 | Outpatient (CLI) | payer MEDICARE, BC, SELFPAY ==
[2023-08-18 10:13] VITALS: BMI 17.5
[2024-08-04 09:42] VITALS: BP 139/60; PULSE 76; RESP 18; TEMP 36.3; O2SAT 100
[2024-08-04] MEDS: Ertapenem Sod 1 GM in 0.9% Normal Saline (50mL MB+) 50 ML IV (09:52)
[2024-08-04] MEDS: 0.9% NaCl Peripheral Flush Adult/Peds IV ×2 (09:52→11:04)
[2024-08-04] MEDS: 0.9% Normal Saline (100mL Bag) 100 ML 15 ML IV (09:52)
[2024-08-04 11:04] VITALS: BP 146/64; PULSE 68; RESP 16
== END 2024-08-04 23:59 | disposition home or self-care (01) ==
LOC: MEDOUTP 09:36
PROVIDERS: PCP Internal Medicine; Referring Provider Internal Medicine; Visit Provider Internal Medicine
DX: C25.9 Malignant neoplasm of pancreas, unspecified (principal); R78.81 Bacteremia
CPT/HCPCS: 96365; A4216

== ENCOUNTER 2024-08-05 09:46 | Outpatient (CLI) | payer MEDICARE, BC, SELFPAY ==
[2023-08-18 10:13] VITALS: BMI 17.5
[2024-08-05] MEDS: Ertapenem Sod 1 GM in 0.9% Normal Saline (50mL MB+) 50 ML IV (09:51)
[2024-08-05] MEDS: 0.9% NaCl Peripheral Flush Adult/Peds IV ×2 (09:51→11:08)
[2024-08-05] MEDS: 0.9% Normal Saline (100mL Bag) 100 ML 15 ML IV (09:52)
[2024-08-05 10:03] VITALS: BP 138/66; PULSE 75; RESP 16; TEMP 36.6; O2SAT 100; BMI 16.4
[2024-08-05 11:10] VITALS: BP 149/63; PULSE 74; RESP 16; TEMP 36.7; O2SAT 100
== END 2024-08-05 23:59 | disposition home or self-care (01) ==
LOC: MEDOUTP 09:46
PROVIDERS: PCP Internal Medicine; Referring Provider Internal Medicine; Visit Provider Internal Medicine
DX: C25.9 Malignant neoplasm of pancreas, unspecified (principal); R78.81 Bacteremia
CPT/HCPCS: 96365; A4216

== ENCOUNTER 2024-08-10 09:39 | Outpatient (CLI) | payer MEDICARE, BC, SELFPAY ==
[2023-08-18 10:13] VITALS: BMI 17.5
[2024-08-10 10:02] VITALS: BP 133/48; PULSE 71; RESP 16; TEMP 36.3; O2SAT 95; BMI 17.2
[2024-08-10 10:28] VITALS: BP 135/64; PULSE 70; RESP 16; TEMP 37; O2SAT 99
[2024-08-10 11:28] VITALS: BP 130/59; PULSE 57; RESP 16; TEMP 36.6; O2SAT 99
[2024-08-10 12:16] VITALS: BP 161/63; PULSE 55; RESP 16; TEMP 36.9; O2SAT 100
== END 2024-08-10 23:59 | disposition home or self-care (01) ==
LOC: MEDOUTP 09:39
PROVIDERS: PCP Internal Medicine; Referring Provider Internal Medicine Hematology & Oncology; Visit Provider Internal Medicine Hematology & Oncology
DX: D64.81 Anemia due to antineoplastic chemotherapy (principal)
CPT/HCPCS: 36430; 86644; 86850; 86900; 86901; 86922; P9016; A4216

== ENCOUNTER 2024-08-16 12:59 | Emergency (ER) | payer MEDICARE, BC, SELFPAY ==
[2023-08-18 10:13] VITALS: BMI 17.5
[2024-08-16 13:01] VITALS: BP 170/96; PULSE 89; RESP 16; TEMP 36.4; O2SAT 100; BMI 16.4
--- NOTE | 2024-08-16 13:59 | EX.ED.DYSGE1 ---
HPI History of Present Illness Chief Complaint: Allergic Reaction Detail of Chief Complaint: Swelling of her upper lip and reported rash Informant: patient and spouse/S.O. Onset/Context/Timing Onset: Today (After the completion of chemotherapy) Context: Sudden Onset Timing: Continuous and Waxes and wanes Quality: Swelling upper lip and rash on her back Location: Upper lip and back Current Severity: Mild Maximum Severity: Moderate Worsened by: Occurred half hour after the completion of chemotherapy. Patient does not Relieved by: Nothing Associated Symptoms Associated Symptoms: No other symptoms Narrative Narrative: Patient is a 74-year-old woman. She has multiple allergies. Most of the reactions are unknown. She has angioedema to penicillin. Patient was diagnosed with pancreatic cancer 1 month ago. She presents because of itching rash on her back and swelling of her upper lip. She has no other symptoms i.e. nausea or vomiting. She denies orthostatic symptoms. Denies trouble breathing or wheezing. She denies change in voice or difficulty swallowing. Prior similar symptoms: Yes (Back rash after last chemo.) Recent Illness/Hospitalization: [facility] Medical History Anxiety Kidney disease GERD (gastroesophageal reflux disease) Former smoker Dyspareunia in female NSTEMI (non-ST elevated myocardial infarction) Hyperlipidemia H/O placement of stent in anterior descending branch of left coronary artery History of ND (myocardial infarction) Mass of left breast Lichen plano-pilaris Differentiation syndrome Abnormal Pap smear of cervix Connective tissue disease, undifferentiated Osteoporosis Rosacea Fibroids Mitral valve prolapse Hypertension Arthritis Basal cell carcinoma Home Medications ?Medication ?Instructions ?Recorded ?Last Taken ?Type calcium 315 mg (as 1 tab PO DAILY 05/27/20 01/14/24 History citrate)-vitamin D3 6.25 mcg (250 unit) tablet (Citracal + Vitamin D Maximum) Held on 07/28/24. Instructions: on hold ezetimibe 10 mg tablet (Zetia) 10 mg PO DAILY 05/29/21 01/14/24 History Lactobacillus acidophilus 10 10,000 mmu cells PO DAILY 09/27/23 01/14/24 History billion cell capsule Held on 07/28/24. Instructions: on hold aspirin 81 mg tablet,delayed 81 mg PO DAILY 09/27/23 01/14/24 History release diclofenac sodium 1 % topical gel 4 g topical 4X/DAY PRN JOINT PAIN 09/27/23 Unknown History famotidine 20 mg tablet (Pepcid) 20 mg PO DAILY 09/27/23 01/14/24 History metoprolol succinate 25 mg 25 mg PO DAILY 09/27/23 01/14/24 History tablet,extended release 24 hr psyllium husk 0.4 gram capsule 0.4 g PO DAILY 09/27/23 01/13/24 History Held on 07/28/24. Instructions: on hold valacyclovir 1 gram tablet 1,000 mg PO DAILY PRN cold sores 09/27/23 Unknown History (Valtrex) ammonium lactate 12 % topical cream 1 applic topical PRN PRN dry skin 01/14/24 Unknown History estradiol 10 mcg vaginal tablet 10 mcg vaginal FR PRN hormone 01/14/24 01/14/24 History (Yuvafem) balance multivitamin (Daily Multi-Vitamin 1 tab PO DAILY 01/14/24 01/14/24 History tablet) Held on 07/28/24. Instructions: on hold apixaban 2.5 mg tablet (Eliquis) 2.5 mg PO BID 07/28/24 Unknown History icomim-ecniibbq-viwxjdv 1 cap PO TID 07/28/24 Unknown History 36,000-114,000-180,000 unit capsule,delay rel (Creon) polyethylene glycol 3350 17 17 g PO DAILY 08/10/24 Unknown History gram/dose oral powder (Miralax) diphenhydramine HCl 25 mg capsule 25 mg PO TID #9 caps 08/16/24 Unknown Rx (Benadryl) famotidine 20 mg tablet (Pepcid) 20 mg PO BID #6 tabs 08/16/24 Unknown Rx prednisone 20 mg tablet 40 mg (2 x 20 mg) PO DAILY #6 08/16/24 Unknown Rx TABLETS Allergy/AdvReac Type Severity Reaction Status Date / Time ampicillin Allergy Mild unknown Verified 08/16/24 13:04 cephalexin Allergy Mild unknown Verified 08/16/24 13:04 clarithromycin Allergy Mild unknown Verified 08/16/24 13:04 clindamycin Allergy Mild unknown Verified 08/16/24 13:04 codeine Allergy Mild Unknown Verified 08/16/24 13:04 erythromycin base Allergy Mild unknown Verified 08/16/24 13:04 ibuprofen Allergy Mild unknown Verified 08/16/24 13:04 meperidine Allergy Mild unknown Verified 08/16/24 13:04 naproxen Allergy Mild unknown Verified 08/16/24 13:04 Penicillins Allergy Mild lip Verified 08/16/24 13:04 swelling sulfamethoxazole Allergy Mild unknown Verified 08/16/24 13:04 sulfanilamide Allergy Mild PT UNSURE Verified 08/16/24 13:04 OF REACTION tetracycline Allergy Mild unknown Verified 08/16/24 13:04 trimethoprim Allergy Mild unknown Verified 08/16/24 13:04 naltrexone Allergy Other Verified 08/16/24 13:04 prochlorperazine (From Allergy Other Verified 08/16/24 13:04 Compazine) amlodipine AdvReac Other Verified 08/16/24 13:04 Benzodiazepines AdvReac Other Verified 08/16/24 13:04 nebivolol (From Bystolic) AdvReac Other Verified 08/16/24 13:04 NSAIDS (Non-Steroidal AdvReac Other Verified 08/16/24 13:04 Anti-Inflamma polyethylene glycol 400 AdvReac Other Verified 08/16/24 13:04 (From Systane (propylene glycol)) propylene glycol (From AdvReac Other Verified 08/16/24 13:04 Systane (propylene glycol)) simvastatin AdvReac Other Verified 08/16/24 13:04 ticagrelor (From Brilinta) AdvReac Other Verified 08/16/24 13:04 Family History Father Alcoholism Throat cancer Mother Thyroid disorder Breast cancer Heart disease Blindness Cataract Glaucoma Macular degeneration Other Abnormal Pap smear of cervix Surgical History History of coronary artery stent placement Hx of appendectomy Breast implant status S/P dilation and curettage S/P hysterectomy S/P foot surgery, left S/P tonsillectomy and adenoidectomy Social History Smoking Status: Former smoker alcohol intake: current details: social substance use type: does not use caffeine: Yes what type of physical activity do you participate in: walking seatbelt use: always do you feel safe at home: Yes additional social history: [employer]- Retired Patient is retired ROS ROS ED Constitutional Constitutional ED: Denies chills, fever(s) or subjective Eyes Eyes: Denies blurry vision or change in vision ENT ENT ED: Denies ear pain, rhinorrhea or sore throat Cardiovascular Cardiovascular: Denies chest pain or palpitations Respiratory/Chest Respiratory/Chest: Denies cough, dyspnea or dyspnea on exertion Gastrointestinal Gastrointestinal: Denies nausea or vomiting Integumentary Reports rash Psychiatric Psychiatric: Reports anxiety Allergic/Immunologic Allergic/Immunologic ED: Reports mouth swelling; Denies tongue swelling or urticaria EXAM Physical Exam Const Vital Signs: 08/16/24 13:01 Temperature 97.6 F L Temperature Source Temporal Pulse Rate 89 Respiratory Rate 16 Blood Pressure 170/96 H Blood Pressure Mean 120 Pulse Ox 100 Oxygen Delivery Method Room Air Patient's vitals are marked for an elevated blood pressure Positive well nourished General Appearance ED: NAD HEENT Reports moist mucous membranes Eyes PERRL and EOMs intact bilaterally General Eye ED: Negative for pale conjunctiva or scleral icterus Neck no lymphadenopathy, supple and no JVD Chest Wall inspection of chest normal and palpation of chest normal Cardio regular rate, regular rhythm, S1 normal heart sound, S2 normal heart sound and no murmurs GI normal to inspection, nondistended, normoactive bowel sounds, non-tender, non-distended and no masses; Negative for hepatosplenomegaly Extremity normal to inspection General Extremety ED: Negative for edema or tenderness General Extremity: Negative for edema Neuro oriented x3 and CN's II-XII intact bilaterally Sensorium / Orientation: alert Skin No no rashes or lesions noted Skin Narrative: Patient has dry skin with areas of excoriation on her back. Patient has slight swelling of her upper lip. She was treated with H1 and H2 hector as well as Solu-Medrol since her symptoms are resolving. MDM MDM Management Discussion w/another healthcare provider: [employer] (Sekiu was asked to page her oncologist Dr. Rodney Purcell to inform them that she has mild angioedema from the chemo and that her rash is dry skin and not urticaria.) Treatment and Re-Evaluation :: Dr. Rodney Purcell did call back. He agrees with treatment. Patient be discharged since her symptoms resolved. Suspect that the Paclitaxel is the medication that caused the angioedema. Discharge Plan Triage Chief Complaint: Allergic Reaction ED Provider: Ry Brandon Dx/Rx/DC Orders Clinical Impression: Angioedema of lips, HTN (hypertension), Hyperlipidemia, Adverse drug reaction, Cancer of pancreas Instructions: ED Angioedema Prescriptions: New prednisone 20 mg tablet 40 mg PO DAILY Qty: 6 0RF famotidine [Pepcid] 20 mg tablet 20 mg PO BID Qty: 6 0RF diphenhydramine HCl [Benadryl] 25 mg capsule 25 mg PO TID Qty: 9 0RF No Action calcium citrate-vitamin D3 [Citracal + D Maximum] 315 mg-6.25 mcg (250 unit) tablet 1 tab PO DAILY ezetimibe [Zetia] 10 mg tablet 10 mg PO DAILY metoprolol succinate 25 mg tablet extended release 24 hr 25 mg PO DAILY aspirin 81 mg tablet,delayed release (DR/EC) 81 mg PO DAILY famotidine [Pepcid] 20 mg tablet 20 mg PO DAILY diclofenac sodium 1 % gel 4 g topical 4X/DAY PRN (Reason: JOINT PAIN) Rx Instructions: apply to single knee, ankle, foot; for foot includes sole/toes/top of foot valacyclovir [Valtrex] 1 gram tablet 1,000 mg PO DAILY PRN (Reason: cold sores) Lactobacillus acidophilus 10 billion cell capsule 10,000 mmu cells PO DAILY psyllium husk 0.4 gram capsule 0.4 g PO DAILY estradiol [Yuvafem] 10 mcg tablet 10 mcg vaginal FR PRN (Reason: hormone balance) Patient Comments: PT STATES SHE DOESNT ALWAYS TAKE ON FRIDAYS, BETWEEN 7-10 DAYS multivitamin [Daily Multi-Vitamin] Tablet 1 tab PO DAILY ammonium lactate 12 % cream 1 applic topical PRN PRN (Reason: dry skin) Eliquis 2.5 mg tablet 2.5 mg PO BID Creon 36,000-114,000- 180,000 unit capsule,delayed release(DR/EC) 1 cap PO TID Rx Instructions: administer with meals and/or snacks polyethylene glycol 3350 [Miralax] 17 gram/dose powder 17 g PO DAILY Primary Care Provider: Sanjeev Singh Referrals: Sanjeev Singh MD [Primary Care Provider] - Rodney Purcell DO [Med Staff - Active Staff] - Keep Kenroy appointment Print Language: Ghanaian Disposition Disposition: Home, Self Care
[2024-08-16] MEDS: DiphenhydrAMINE 50 MG/ML Syringe 25 MG IV (14:05)
[2024-08-16] MEDS: MethylPREDNISolone 125 MG/2 ML Vial 60 MG IV (14:06)
[2024-08-16] MEDS: Famotidine 200 MG/20 ML MDV 20 MG in 0.9% Normal Saline (Pres. free 8 ML 300 MG IV (14:27)
[2024-08-16 15:00] VITALS: BP 138/84; PULSE 79; RESP 18; O2SAT 99
[2024-08-16 15:12] VITALS: BP 138/84; PULSE 79; RESP 18; TEMP 36.8; O2SAT 99
== END 2024-08-16 15:23 | disposition home or self-care (01) ==
PROVIDERS: Emergency Provider Emergency Medicine; PCP Internal Medicine; Visit Provider Emergency Medicine
DX: T78.3XXA Angioneurotic edema, initial encounter (principal); C25.9 Malignant neoplasm of pancreas, unspecified; T45.1X5A Adverse effect of antineoplastic and immunosuppressive drugs, initial encounter; E78.5 Hyperlipidemia, unspecified; I10 Essential (primary) hypertension; Z87.891 Personal history of nicotine dependence; K21.9 Gastro-esophageal reflux disease without esophagitis
CPT/HCPCS: 96374; 96375; 99283; A4216

== ENCOUNTER 2025-02-04 12:28 | Emergency (ER) | payer MEDICARE, BC, SELFPAY ==
[2023-08-18 10:13] VITALS: BMI 17.5
[2025-02-04 12:30] VITALS: BP 142/63; PULSE 78; RESP 16; TEMP 36.7; O2SAT 100
--- NOTE | 2025-02-04 12:59 | EX.ED.DYSGE1 ---
HPI History of Present Illness Chief Complaint: Wound Informant: patient and spouse/S.O. Onset/Context/Timing Onset: Today Current Severity: Mild Maximum Severity: Mild Narrative Narrative: 74-year-old female diagnosed last May with pancreatic cancer. Had multiple rounds of chemotherapy this past Wednesday at [facility] in [place] underwent a surgical resection of part of her pancreas for a Whipple procedure and her gallbladder was removed. She was just discharged yesterday she had a drain in the right side of her abdomen which was pulled out. Today she has had some straw-colored fluid out from that drain site. She denies any fever. Says she is feeling well. She and her were just concerned because of the drainage. Prior similar symptoms: No Recent Illness/Hospitalization: Yes PFSH [facility] Medical History Anxiety Kidney disease GERD (gastroesophageal reflux disease) Former smoker Dyspareunia in female NSTEMI (non-ST elevated myocardial infarction) Hyperlipidemia H/O placement of stent in anterior descending branch of left coronary artery History of WI (myocardial infarction) Mass of left breast Lichen plano-pilaris Differentiation syndrome Abnormal Pap smear of cervix Connective tissue disease, undifferentiated Osteoporosis Rosacea Fibroids Mitral valve prolapse Hypertension Arthritis Basal cell carcinoma Home Medications ?Medication ?Instructions ?Recorded ?Last Taken ?Type calcium 315 mg (as 1 tab PO DAILY 05/27/20 01/14/24 History citrate)-vitamin D3 6.25 mcg (250 unit) tablet (Citracal + Vitamin D Maximum) Held on 07/28/24. Instructions: on hold ezetimibe 10 mg tablet (Zetia) 10 mg PO DAILY 05/29/21 01/14/24 History Lactobacillus acidophilus 10 10,000 mmu cells PO DAILY 09/27/23 01/14/24 History billion cell capsule Held on 07/28/24. Instructions: on hold aspirin 81 mg tablet,delayed 81 mg PO DAILY 09/27/23 01/14/24 History release diclofenac sodium 1 % topical gel 4 g topical 4X/DAY PRN JOINT PAIN 09/27/23 Unknown History famotidine 20 mg tablet (Pepcid) 20 mg PO DAILY 09/27/23 01/14/24 History metoprolol succinate 25 mg 25 mg PO DAILY 09/27/23 01/14/24 History tablet,extended release 24 hr psyllium husk 0.4 gram capsule 0.4 g PO DAILY 09/27/23 01/13/24 History Held on 07/28/24. Instructions: on hold valacyclovir 1 gram tablet 1,000 mg PO DAILY PRN cold sores 09/27/23 Unknown History (Valtrex) ammonium lactate 12 % topical cream 1 applic topical PRN PRN dry skin 01/14/24 Unknown History estradiol 10 mcg vaginal tablet 10 mcg vaginal FR PRN hormone 01/14/24 01/14/24 History (Yuvafem) balance multivitamin (Daily Multi-Vitamin 1 tab PO DAILY 01/14/24 01/14/24 History tablet) Held on 07/28/24. Instructions: on hold apixaban 2.5 mg tablet (Eliquis) 2.5 mg PO BID 07/28/24 Unknown History kbskti-ckbzqpen-ccvalqy 1 cap PO TID 07/28/24 Unknown History 36,000-114,000-180,000 unit capsule,delay rel (Creon) polyethylene glycol 3350 17 17 g PO DAILY 08/10/24 Unknown History gram/dose oral powder (Miralax) diphenhydramine HCl 25 mg capsule 25 mg PO TID #9 caps 08/16/24 Unknown Rx (Benadryl) famotidine 20 mg tablet (Pepcid) 20 mg PO BID #6 tabs 08/16/24 Unknown Rx prednisone 20 mg tablet 40 mg (2 x 20 mg) PO DAILY #6 08/16/24 Unknown Rx TABLETS Allergy/AdvReac Type Severity Reaction Status Date / Time ampicillin Allergy Mild unknown Verified 02/04/25 12:32 cephalexin Allergy Mild unknown Verified 02/04/25 12:32 clarithromycin Allergy Mild unknown Verified 02/04/25 12:32 clindamycin Allergy Mild unknown Verified 02/04/25 12:32 codeine Allergy Mild Unknown Verified 02/04/25 12:32 erythromycin base Allergy Mild unknown Verified 02/04/25 12:32 ibuprofen Allergy Mild unknown Verified 02/04/25 12:32 meperidine Allergy Mild unknown Verified 02/04/25 12:32 naproxen Allergy Mild unknown Verified 02/04/25 12:32 Penicillins Allergy Mild lip Verified 02/04/25 12:32 swelling sulfamethoxazole Allergy Mild unknown Verified 02/04/25 12:32 sulfanilamide Allergy Mild PT UNSURE Verified 02/04/25 12:32 OF REACTION tetracycline Allergy Mild unknown Verified 02/04/25 12:32 trimethoprim Allergy Mild unknown Verified 02/04/25 12:32 naltrexone Allergy Other Verified 02/04/25 12:32 prochlorperazine (From Allergy Other Verified 02/04/25 12:32 Compazine) amlodipine AdvReac Other Verified 02/04/25 12:32 Benzodiazepines AdvReac Other Verified 02/04/25 12:32 nebivolol (From Bystolic) AdvReac Other Verified 02/04/25 12:32 NSAIDS (Non-Steroidal AdvReac Other Verified 02/04/25 12:32 Anti-Inflamma polyethylene glycol 400 AdvReac Other Verified 08/16/24 13:04 (From Systane (propylene glycol)) propylene glycol (From AdvReac Other Verified 02/04/25 12:32 Systane (propylene glycol)) simvastatin AdvReac Other Verified 02/04/25 12:32 ticagrelor (From Brilinta) AdvReac Other Verified 02/04/25 12:32 Family History Father Alcoholism Throat cancer Mother Thyroid disorder Breast cancer Heart disease Blindness Cataract Glaucoma Macular degeneration Other Abnormal Pap smear of cervix Surgical History History of coronary artery stent placement Hx of appendectomy Breast implant status S/P dilation and curettage S/P hysterectomy S/P foot surgery, left S/P tonsillectomy and adenoidectomy Social History Smoking Status: Former smoker alcohol intake: current details: social substance use type: does not use caffeine: Yes what type of physical activity do you participate in: walking seatbelt use: always do you feel safe at home: Yes additional social history: [employer]- Retired Patient is retired ROS ROS ED ROS Narrative Denies recent illness. Constitutional Constitutional ED: Denies fever(s) Eyes Eyes: Denies blurry vision ENT ENT ED: Denies ear pain Cardiovascular Cardiovascular: Denies chest pain Respiratory/Chest Respiratory/Chest: Denies cough Gastrointestinal Gastrointestinal: Denies abdominal pain Genitourinary Genitourinary ED: Denies dysuria Musculoskeletal Musculoskeletal: Denies arthralgias Integumentary Denies abscess Neurologic Neurologic: Denies headache(s) Psychiatric Psychiatric: Denies anxiety Endocrine Endocrinology: Denies cold intolerance Hematologic/Lymphatic Hematologic/Lymphatic: Reports none Allergic/Immunologic Allergic/Immunologic ED: Denies mouth swelling, tongue swelling or urticaria EXAM Physical Exam Narrative Exam Narrative: Well-appearing 74-year-old female. Vital signs stable afebrile. at bedside. Patient is in no distress. H EENT exam pupils round react to light. Moist Venancio membranes. Neck nontender. Lungs good auscultation bilaterally. Heart regular rhythm rate about 75 no murmur. Chest wall ribs nontender. Abdomen soft well-healing midline exploratory lap surgery. To the right is about a 1 inch drain site with some mild drainage of clear yellow fluid. No blood. No pus. No cellulitis. She really has minimal tenderness of her abdomen. There is no signs of a wound infection. There is no distention. Normal bowel sounds. Moving all 4 extremities. Nontender no edema. Neurologically she is awake and alert. Patient looks quite well for someone who just underwent major surgery in the last week. Const Vital Signs: 02/04/25 12:30 Temperature 98.1 F Temperature Source Oral Pulse Rate 78 Respiratory Rate 16 Blood Pressure 142/63 H Blood Pressure Mean 89 Pulse Ox 100 Oxygen Delivery Method Room Air Positive well nourished and well developed; Negative for cachectic, contractures or unkempt General Appearance ED: well developed and NAD; Negative for unkempt, cachectic, contractures, cyanotic or diaphoretic Nutritional Appearance: Negative for cachectic HEENT Reports moist mucous membranes Eyes PERRL and EOMs intact bilaterally Neck no lymphadenopathy, supple and no JVD Chest Wall inspection of chest normal and palpation of chest normal Resp normal respiratory effort and clear to auscultation bilaterally Cardio regular rate, regular rhythm, S1 normal heart sound, S2 normal heart sound and no murmurs GI normal to inspection, nondistended, normoactive bowel sounds, non-distended and no masses; Negative for non-tender GI Narrative: Well-healing midline exploratory laparotomy incision. Dry and clean. To the right there is a 1 inch horizontal drain site that has serous drainage. No pus. No redness or cellulitis. No bleeding. Well-healing surgical sites. Auscultation: normoactive bowel sounds Palpation: soft and tender; Negative for guarding or rebound tenderness present Back/Spine no CVA tenderness General Back: Negative for CVA tenderness Cervical Spine: Negative for cervical spine tenderness Thoracic Spine / Upper Back: Negative for thoracic spinal tenderness Extremity normal to inspection General Extremety ED: Negative for edema or tenderness General Extremity: Negative for edema Neuro oriented x3 and CN's II-XII intact bilaterally Sensorium / Orientation: alert Motor Exam: strength 5/5 throughout Psych mental status grossly normal Appearance: Negative for unkempt Skin no rashes or lesions noted, No no wounds and skin turgor normal Skin Narrative: Well-healing abdominal surgical wounds. MDM MDM MDM Narrative Medical decision making narrative: 74-year-old female status post exploratory laparotomy and Whipple procedure for pancreatic mass along with a cholecystectomy. The drain site they pulled the drain the other day. She does have some serous drainage. Area be cleaned we will redress the site. I explained to the family that this is not uncommon after surgery. There is no signs of infection he can follow-up with your surgeons office tomorrow. I did call the office I was unable to leave a message. History & Record Review Discussion w/independent historian: Patient Additional record(s) reviewed:: Prior inpatient record, Prior outpatient record, Prior ED visit and Prior labs Discharge Plan Triage Chief Complaint: Wound ED Provider: Elvin Cavanaugh Dx/Rx/DC Orders Clinical Impression: Drainage from surgical wound, History of pancreatic cancer, History of Whipple procedure Prescriptions: No Action calcium citrate-vitamin D3 [Citracal + D Maximum] 315 mg-6.25 mcg (250 unit) tablet 1 tab PO DAILY ezetimibe [Zetia] 10 mg tablet 10 mg PO DAILY metoprolol succinate 25 mg tablet extended release 24 hr 25 mg PO DAILY aspirin 81 mg tablet,delayed release (DR/EC) 81 mg PO DAILY famotidine [Pepcid] 20 mg tablet 20 mg PO DAILY diclofenac sodium 1 % gel 4 g topical 4X/DAY PRN (Reason: JOINT PAIN) Rx Instructions: apply to single knee, ankle, foot; for foot includes sole/toes/top of foot valacyclovir [Valtrex] 1 gram tablet 1,000 mg PO DAILY PRN (Reason: cold sores) Lactobacillus acidophilus 10 billion cell capsule 10,000 mmu cells PO DAILY psyllium husk 0.4 gram capsule 0.4 g PO DAILY estradiol [Yuvafem] 10 mcg tablet 10 mcg vaginal FR PRN (Reason: hormone balance) Patient Comments: PT STATES SHE DOESNT ALWAYS TAKE ON FRIDAYS, BETWEEN 7-10 DAYS multivitamin [Daily Multi-Vitamin] Tablet 1 tab PO DAILY ammonium lactate 12 % cream 1 applic topical PRN PRN (Reason: dry skin) prednisone 20 mg tablet 40 mg PO DAILY Qty: 6 0RF famotidine [Pepcid] 20 mg tablet 20 mg PO BID Qty: 6 0RF diphenhydramine HCl [Benadryl] 25 mg capsule 25 mg PO TID Qty: 9 0RF Eliquis 2.5 mg tablet 2.5 mg PO BID Creon 36,000-114,000- 180,000 unit capsule,delayed release(DR/EC) 1 cap PO TID Rx Instructions: administer with meals and/or snacks polyethylene glycol 3350 [Miralax] 17 gram/dose powder 17 g PO DAILY Primary Care Provider: Sanjeev Singh Referrals: Sanjeev Singh MD [Primary Care Provider] - Activity Restrictions/Additional Instructions: Follow-up with your surgeons office tomorrow. Keep the wound clean. Dry. It may continue to drain. You can keep Steri-Strips on it. Change the dressing whenever gets wet. Call his office tomorrow tell me of some drainage but you were seen in the ER it does not look infected it clinically looks well. This will continue to drain for probably up to the next week. As it heals the drainage will slow down and stop. If the drainage looks like pus or the area gets real red or you develop a fever you need to be reevaluated. Print Language: Cambodian Disposition Disposition: Home, Self Care
[2025-02-04 13:17] VITALS: BP 141/75; PULSE 75; RESP 16; TEMP 36.7; O2SAT 100
== END 2025-02-04 13:18 | disposition home or self-care (01) ==
PROVIDERS: Emergency Provider Emergency Medicine; PCP Internal Medicine; Referring Provider Emergency Medicine; Visit Provider Emergency Medicine
DX: Z98.890 Other specified postprocedural states (principal); C25.9 Malignant neoplasm of pancreas, unspecified; E78.5 Hyperlipidemia, unspecified; Z87.891 Personal history of nicotine dependence; I10 Essential (primary) hypertension; K21.9 Gastro-esophageal reflux disease without esophagitis; Z90.49 Acquired absence of other specified parts of digestive tract
CPT/HCPCS: 99282

== ENCOUNTER → 2025-06-14 | Outpatient (CLI) | payer MEDICARE, BC, SELFPAY ==
[2023-08-18 10:13] VITALS: BMI 17.5
--- NOTE | 2025-06-14 15:30 | BI_ITS ---
EXAM: SCRN MAMM (CAD)W/HOLLIS BILAT DATE: 06/14/2025 CLINICAL HISTORY: F, Age 75 y/o , SCREENING MAMMOGRAM BREAST CANCER TECHNIQUE: Procedure Code: [id number] Modality: MG Procedure: SCRN MAMM (CAD)W/HOLLIS BILAT COMPARISON: Prior exam(s) were compared FINDINGS: TISSUE DENSITY: The breasts are heterogeneously dense, which may obscure small masses. Bilateral Breast Mammographic Findings: No significant masses, calcifications or other abnormalities are identified. BI/SCRN MAMM (CAD)W/HOLLIS BILAT IMPRESSION: No mammographic evidence of malignancy OVERALL FINAL ASSESSMENT BI-RADS 2: BENIGN RECOMMENDATION: Routine annual follow-up in 1 Year Additional Recommendation none A letter with findings and recommendations will be mailed to the patient. Reading Location: [id number]
== END | disposition home or self-care (01) ==
PROVIDERS: PCP Internal Medicine; Referring Provider Nurse Practitioner Family; Visit Provider Nurse Practitioner Family
DX: Z12.31 Encounter for screening mammogram for malignant neoplasm of breast (principal)
CPT/HCPCS: 77063; 77067